=== PATIENT | male | born 1940 | race African-American/Black ===

== ENCOUNTER 2016-10-28 12:50 | Emergency (ER) | payer MEDICARE, OTHER ==
[2016-10-28] MEDS ORDERED: ACETAMINOPHEN 325 MG TABLET PO ONE (13:23)
--- NOTE | 2016-10-28 13:25 | ER Document Report ---
ED Medical Screen (RME) - General Stated Complaint: DIFFICULTY BREATHING Mode of Arrival: Ambulatory Information source: Patient Notes: Patient presents complaining of cough, shortness of breath, wheezing. Patient reports fever of 102.3 at home. Cough has been for the past 3 days. hx: Multiple myeloma with remission, hypertension, renal insufficiency, dyslipidemia I have greeted and performed a rapid initial assessment of this patient. A comprehensive ED assessment and evaluation of the patient, analysis of test results and completion of the medical decision making process will be conducted by additional ED providers. TRAVEL OUTSIDE OF THE [place] IN LAST 30 DAYS: No - Related Data Allergies/Adverse Reactions: Penicillins Allergy (Intermediate, Verified 10/28/16 13:23) swelling Past Medical History - Past Medical History Cardiac Medical History: Reports: Hx Congestive Heart Failure, Hx Hypertension - many years Denies: Hx Coronary Artery Disease, Hx Heart Attack Pulmonary Medical History: Denies: Hx Asthma, Hx Bronchitis, Hx COPD, Hx Pneumonia, Hx Tuberculosis Neurological Medical History: Denies: Hx Cerebrovascular Accident, Hx Seizures Renal/ Medical History: Reports: Hx Benign Prostatic Hyperplasia, Hx End Stage Renal Disease. Denies: Hx Kidney Stones Malignancy Medical History: Reports Hx Leukemia GI Medical History: Reports: Hx Gastroesophageal Reflux Disease. Denies: Hx Cirrhosis, Hx Ulcer Musculoskeltal Medical History: Denies Hx Arthritis, Denies Hx Multiple Sclerosis Psychiatric Medical History: Denies: Hx Bipolar Disorder, Hx Depression, Hx Schizophrenia - Immunizations Immunizations up to date: Yes Hx Diphtheria, Pertussis, Tetanus Vaccination: Yes Physical Exam - Respiratory Respiratory status: No respiratory distress Breath sounds: Nonproductive cough
[2016-10-28 15:04] LABS: ABSOLUTE BASOPHILS # (AUTO) 0.1 10^3/uL (0.0-0.2); ABSOLUTE MONOCYTES (AUTO) 0.4 10^3/uL (0.1-1.4); ABSOLUTE NEUT (AUTO) 6.2 10^3/uL (1.7-8.2); BASOPHILS % (AUTO) 0.7 % (0-2); EOSINOPHILS % (AUTO) 0.4 % (0-6); HEMOGLOBIN 10.6 g/dL (13.5-17.0); HGB HCT DIFFERENCE -1.2; LYMPHOCYTES % (AUTO) 13.5 % (13-45); MEAN CORPUSCULAR HEMOGLOBIN 23.7 pg (27.0-33.4); MEAN CORPUSCULAR VOLUME 74 fl (80-97); MONOCYTES % (AUTO) 5.2 % (3-13); RED BLOOD COUNT 4.46 10^6/uL (4.35-5.55); RED CELL DISTRIBUTION WIDTH 19.6 % (11.5-14.0); SEGMENTED NEUTROPHILS % (AUTO) 80.2 % (42-78); WHITE BLOOD COUNT 7.8 10^3/uL (4.0-10.5)
[2016-10-28] MEDS ORDERED: IPRATROPIUM/ALBUTEROL 0.5-2.5 MG/3 ML AMPUL NEB ONE (15:04)
[2016-10-28 15:27] LABS: ALANINE AMINOTRANSFERASE 23 U/L (21-72); ALBUMIN 4.3 g/dL (3.5-5.0); ALKALINE PHOSPHATASE 65 U/L (38-126); ANION GAP 13 (5-19); ASPARTATE AMINO TRANSFERASE 24 U/L (17-59); BLOOD UREA NITROGEN 69 mg/dL (7-20); CALCIUM 9.6 mg/dL (8.4-10.2); CARBON DIOXIDE 25 mmol/L (22-30); CHLORIDE 100 mmol/L (98-107); CREATINE KINASE 141 U/L (55-170); CREATININE RESULT 4.09 mg/dL (0.52-1.25); GLUCOSE 128 mg/dL (75-110); POTASSIUM 4.4 mmol/L (3.6-5.0); SODIUM 137.6 mmol/L (137-145); TOTAL PROTEIN 7.3 g/dL (6.3-8.2)
[2016-10-28 15:39] LABS: CREATINE KINASE MB 1.38 ng/mL (<4.55); TROPONIN I 0.029 ng/mL
--- NOTE | 2016-10-28 16:12 | ER Document Report ---
ED General - General Chief Complaint: Breathing Difficulty Stated Complaint: DIFFICULTY BREATHING Mode of Arrival: Ambulatory Information source: Patient, Relative Notes: 75 yr old male presents with 2 day duration of nonproductive cough. Pt noted being febrile today. denies any nausea vomiting diarrhea or any other ocncerns TRAVEL OUTSIDE OF THE [place] IN LAST 30 DAYS: No - HPI Onset: Other - 2 days Onset/Duration: Sudden Quality of pain: No pain Severity: Mild Pain Level: Denies Associated symptoms: Nonproductive cough, Fever, Shortness of breath Exacerbated by: Denies Relieved by: Denies Similar symptoms previously: No Recently seen / treated by doctor: No - Related Data Allergies/Adverse Reactions: Penicillins Allergy (Intermediate, Verified 10/28/16 13:23) swelling Past Medical History - General Information source: Patient - Social History Smoking Status: Unknown if Ever Smoked Cigarette use (# per day): No Chew tobacco use (# tins/day): No Smoking Education Provided: No Frequency of alcohol use: None Drug Abuse: None Family History: Reviewed & Not Pertinent, CAD, DM, Hyperlipidemia, Hypertension Patient has suicidal ideation: No Patient has homicidal ideation: No - Past Medical History Cardiac Medical History: Reports: Hx Congestive Heart Failure, Hx Hypertension - many years Denies: Hx Coronary Artery Disease, Hx Heart Attack Pulmonary Medical History: Denies: Hx Asthma, Hx Bronchitis, Hx COPD, Hx Pneumonia, Hx Tuberculosis Neurological Medical History: Denies: Hx Cerebrovascular Accident, Hx Seizures Renal/ Medical History: Reports: Hx Benign Prostatic Hyperplasia, Hx End Stage Renal Disease. Denies: Hx Kidney Stones, Hx Peritoneal Dialysis Malignancy Medical History: Reports Hx Leukemia GI Medical History: Reports: Hx Gastroesophageal Reflux Disease. Denies: Hx Cirrhosis, Hx Ulcer Musculoskeltal Medical History: Denies Hx Arthritis, Denies Hx Multiple Sclerosis Psychiatric Medical History: Denies: Hx Bipolar Disorder, Hx Depression, Hx Schizophrenia - Immunizations Immunizations up to date: Yes Hx Diphtheria, Pertussis, Tetanus Vaccination: Yes Hx Pneumococcal Vaccination: 02/27/15 Review of Systems - Review of Systems Notes: REVIEW OF SYSTEMS: CONSTITUTIONAL :admits ot fver EENT: Denies eye, ear, throat, or mouth pain or symptoms. Denies nasal or sinus congestion or discharge. Denies throat, tongue, or mouth swelling or difficulty swallowing. CARDIOVASCULAR: Denies chest pain. Denies palpitations or racing or irregular heart beat. Denies ankle edema. RESPIRATORY: admits ot sob, cough GASTROINTESTINAL: Denies abdominal pain or distention. Denies nausea, vomiting , or diarrhea. Denies blood in vomitus, stools, or per rectum. Denies black, tarry stools. Denies constipation. GENITOURINARY: Denies difficulty urinating, painful urination, burning, frequency, blood in urine, or discharge. MUSCULOSKELETAL: Denies back or neck pain or stiffness. Denies joint pain or swelling. SKIN: Denies rash, lesions or sores. HEMATOLOGIC : Denies easy bruising or bleeding. LYMPHATIC: Denies swollen, enlarged glands. NEUROLOGICAL: Denies confusion or altered mental status. Denies passing out or loss of consciousness. Denies dizziness or lightheadedness. Denies headache. Denies weakness or paralysis or loss of use of either side. Denies problems with gait or speech. Denies sensory loss, numbness, or tingling. Denies seizures. PSYCHIATRIC: Denies anxiety or stress. Denies depression, suicidal ideation, or homicidal ideation. ALL OTHER SYSTEMS REVIEWED AND NEGATIVE. Dictation was performed using [employer] voice recognition software PHYSICAL EXAMINATION: GENERAL: Well-appearing, well-nourished and in no acute distress. HEAD: Atraumatic, normocephalic. EYES: Pupils equal round and reactive to light, extraocular movements intact, sclera anicteric, conjunctiva are normal. ENT: Nares patent, oropharynx clear without exudates. Moist mucous membranes. NECK: Normal range of motion, supple without lymphadenopathy LUNGS: bilateral expiratory wheezing noted HEART: Regular rate and rhythm without murmurs ABDOMEN: Soft, nontender, nondistended abdomen. No guarding, no rebound. No masses appreciated. Musculoskeletal: Normal range of motion, no pitting or edema. No cyanosis. NEUROLOGICAL: Cranial nerves grossly intact. Normal speech, normal gait. Normal sensory, motor exams PSYCH: Normal mood, normal affect. SKIN: Warm, Dry, normal turgor, no rashes or lesions noted. Physical Exam - Vital signs Vitals: Resp 20 10/28/16 14:45 Course - Re-evaluation Re-evalutation: 10/28/16 16:14 pt to be be given duo nebs, resting at 97% on ra, i expect discharge home, pts fever treated. 02/05/17 16:45 X-ray was negative influenza was normal. Patient sleeping and satting 100%, I will discharge him home with the understanding must return immediately if there is any other concerns, family member agrees with this plan as well After performing a Medical Screening Examination, I estimate there is LOW risk for ACUTE CORONARY SYNDROME, RESPIRATORY FAILURE, SEPSIS OR MENINGITIS, thus I consider the discharge disposition reasonable. The patient and I have discussed the diagnosis and risks, and we agree with discharging home with close follow- up. We also discussed returning to the Emergency Department immediately if new or worsening symptoms occur. We have discussed the symptoms which are most concerning (e.g., changing or worsening pain, trouble swallowing or breathing, neck stiffness, fever) that necessitate immediate return. - Vital Signs Vital signs: Temp Pulse Resp BP Pulse Ox 20 10/28/16 14:45 - Laboratory Result Diagrams: 10/28/16 14:40 10/28/16 14:40 Laboratory results interpreted by me: 10/28/16 10/28/16 14:40 14:40 Hgb 10.6 L Hct 33.0 L MCV 74 L MCH 23.7 L RDW 19.6 H Plt Count 146 L Seg Neutrophils % 80.2 H BUN 69 H Creatinine 4.09 H Est GFR ( Amer) 17 L Est GFR (Non-Af Amer) 14 L Glucose 128 H - Diagnostic Test Radiology reviewed: Image reviewed, Reports reviewed Discharge - Discharge Clinical Impression: Nonproductive cough URI (upper respiratory infection) Qualifiers: URI type: unspecified viral URI Qualified Code(s): J06.9 - Acute upper respiratory infection, unspecified; B97.89 - Other viral agents as the cause of diseases classified elsewhere CKD (chronic kidney disease) Qualifiers: Chronic kidney disease stage: stage 4 (severe) Qualified Code(s): N18.4 - Chronic kidney disease, stage 4 (severe) URI (upper respiratory infection) Qualifiers: URI type: unspecified viral URI Qualified Code(s): J06.9 - Acute upper respiratory infection, unspecified; B97.89 - Other viral agents as the cause of diseases classified elsewhere Fever Qualifiers: Fever type: unspecified Qualified Code(s): R50.9 - Fever, unspecified Condition: Stable Disposition: HOME, SELF-CARE Additional Instructions: Follow up with your physician tomorrow for further care or return to the ED IMMEDIATELY if symptoms worsen or new concerns occur
[2016-10-28] MEDS ORDERED: ALBUTEROL SULFATE HFA (90 MCG/PUFF) 8 GM MDI (1 MDI/ER DISP) IH PRN (16:47)
[2016-10-28 16:49] LABS: VENOUS BLOOD BASE EXCESS 0.6 mmol/L; VENOUS BLOOD HCO3 26.1 mmol/L (20-32); VENOUS BLOOD PCO2 45.3 mmHg (35-63); VENOUS BLOOD PH 7.38 (7.30-7.42)
[2016-10-28 17:37] VITALS: BP 127/59
--- NOTE | 2016-10-28 19:25 | EKG REPORT ---
SEVERITY:- BORDERLINE ECG - SINUS RHYTHM ATRIAL AND VENTRICULAR PREMATURE COMPLEX BORDERLINE INFERIOR Q WAVES : Confirmed by: Al Marcus 28-Oct-2016 19:24:13
== END 2016-10-28 17:37 | disposition home or self-care (01) ==
LOC: ER 12:50
DX: J06.9 Acute upper respiratory infection, unspecified (principal); B97.89 Other viral agents as the cause of diseases classified elsewhere; R05 Cough; N18.4 Chronic kidney disease, stage 4 (severe); R50.9 Fever, unspecified; I50.9 Heart failure, unspecified; I11.0 Hypertensive heart disease with heart failure; Z88.0 Allergy status to penicillin
CPT/HCPCS: 93005; 94640; 99285; 36415; 87040; 82553; 82550; 85025; 80053; 84484; 82803; 83605; 87804; 71020; 93010; A9270 ×2; J3490; J7620

== ENCOUNTER 2016-10-29 14:56 | Inpatient (IN) | payer MEDICARE ==
--- NOTE | 2016-10-29 17:56 | PDOC H&P ---
History of Present Illness Admission Date/PCP: 10/29/16 14:56 Patient complains of: Difficulty with breathing, Fever History of Present Illness: ARIE HUNTER JR is a 75 year old male referred to my service been his PCP for admission due to worsening fever and difficulty with breathing. Patient presented to our ED on 10/28/16 with 2 day duration of nonproductive cough and onset of fever on the day of his presentation. Due to persistence of his symptoms he presented to [facility] earlier today where he was found to have temperature of 101.4F with associated heart rate of 108/min and relative leukocytosis. He received a dose of Ceftriaxone and advised hospitalization for further evaluation and management. Patient had blood culture drawn before antibiotic administration. He reported onset of intermittent productive cough since last evaluation at our ED. He described sputum as yellowish to light brown in color and fair amount in size. He did reported sinus and nasal congestion. He claimed chest pain with coughing. There is associated audible wheezing. He denied any dysuria or hematuria. There is history of CKD stage 4 ad Multiple Myeloma. Past Medical History Cardiac Medical History: Reports: Congestive Heart Failure, Hypertension - many years Denies: Coronary Artery Disease, Myocardial Infarction Pulmonary Medical History: Denies: Asthma, Bronchitis, Chronic Obstructive Pulmonary Disease (COPD), Pneumonia, Tuberculosis Neurological Medical History: Denies: Seizures Renal/ Medical History: Reports: End Stage Renal Disease Malignancy Medical History: Reports: Leukemia GI Medical History: Reports: Gastroesophageal Reflux Disease Denies: Cirrhosis Musculoskeltal Medical History: Denies: Arthritis Psychiatric Medical History: Denies: Bipolar Disorder, Depression Hematology: Reports: Anemia Denies: Bleeding Tendencies Social History Smoking Status: Former Smoker Cigarettes Packs Per Day: 1 Number of Years Smokin Frequency of Alcohol Use: None Hx Recreational Drug Use: No Hx Prescription Drug Abuse: No Family History Family History: Reviewed & Not Pertinent, CAD, DM, Hyperlipidemia, Hypertension Parental Family History Reviewed: Yes Children Family History Reviewed: Yes Sibling(s) Family History Reviewed.: Yes Medication/Allergy Home Medications: Aspirin [Lo-Dose Aspirin EC] 81 mg PO DAILY 10/29/16 Calcium Carb & Citrate/Vit D3 [Calcium + D3 ER Tablet] 1 each PO DAILY 10/29/16 Dexamethasone 20 mg PO MO 10/29/16 Diclofenac Sodium [Voltaren] 2 gm TP QID 10/29/16 Docusate Sodium 100 mg PO TID 10/29/16 Dutasteride [Avodart] 0.5 mg PO DAILY 10/29/16 Ergocalciferol (Vitamin D2) [Vitamin D2] 50,000 unit PO MO 10/29/16 Ferrous Sulfate 325 mg PO DAILY 10/29/16 Fluticasone Propionate [Flovent Diskus] 50 mcg IH DAILY 10/29/16 Furosemide 80 mg PO MOWEFR 10/29/16 Furosemide [Lasix] 40 mg PO SUTUTHSA 10/29/16 Irbesartan [Avapro] 300 mg PO DAILY 10/29/16 Labetalol HCl [Normodyne 200 mg Tablet] 200 mg PO BID 10/29/16 Magnesium Oxide 400 mg PO BID 10/29/16 Metolazone 5 mg PO MOWE10/29/16 Nifedipine [Nifedipine ER] 120 mg PO DAILY 10/29/16 Omeprazole 40 mg PO QAM 10/29/16 Pravastatin Sodium 40 mg PO QHS 10/29/16 Terazosin HCl 2 cap PO DAILY 10/29/16 Vitamin B Complex & Vit C No.4 [Super B Complex] 1 tab PO DAILY 10/29/16 Vitamin E 400 unit PO DAILY 10/29/16 Allergies/Adverse Reactions: Penicillins Allergy (Intermediate, Verified 10/28/16 13:23) swelling Review of Systems Constitutional: PRESENT: chills, fever(s). ABSENT: as per HPI, anorexia, fatigue, headache(s), night sweats, weakness, weight gain, weight loss, other Eyes: ABSENT: visual disturbances Ears: ABSENT: hearing changes Nose, Mouth, and Throat: ABSENT: as per HPI, headache(s), mouth pain, sore throat, vertigo, other Cardiovascular: ABSENT: chest pain, dyspnea on exertion, edema, orthropnea, palpitations Respiratory: PRESENT: cough, dyspnea, sputum Gastrointestinal: ABSENT: abdominal pain, constipation, diarrhea, hematemesis, hematochezia, nausea, vomiting Genitourinary: ABSENT: dysuria, hematuria Musculoskeletal: ABSENT: as per HPI, back pain, deformity, joint swelling, muscle weakness, other Integumentary: ABSENT: as per HPI, diaphoresis, erythema, lesions, pruritus, rash, wounds, other Neurological: PRESENT: weakness - generaliszed due to acute illness. ABSENT: as per HPI, abnormal gait, abnormal movements, abnormal speech, confusion, convulsions, dizziness, focal weakness, frequent falls, lack of coordination, memory loss, numbness, paresthesias, restless legs, syncope, tingling, tremor(s) , vertigo, other Psychiatric: ABSENT: anxiety, depression, homidical ideation, suicidal ideation Endocrine: ABSENT: cold intolerance, heat intolerance, menstrual abnormalities, polydipsia, polyuria Hematologic/Lymphatic: ABSENT: as per HPI, easy bleeding, easy bruising, lymphadenopathy, other Physical Exam Vital Signs: Temp Pulse Resp BP Pulse Ox 99.7 F 67 22 H 149/75 H 97 10/29/16 15:28 10/29/16 15:28 10/29/16 15:28 10/29/16 15:28 10/29/16 15:28 Intake & Output 10/28/16 10/29/16 10/30/16 06:59 06:59 06:59 Weight 96.6 kg Assessment & Plan - Diagnosis (1) Probable sepsis Is this a current diagnosis for this admission?: YesPlan: See admitting physician orders. (2) CKD (chronic kidney disease) Qualifiers: Chronic kidney disease stage: stage 4 (severe) Qualified Code(s): N18.4 - Chronic kidney disease, stage 4 (severe) Is this a current diagnosis for this admission?: YesPlan: Continue current home medication management. (3) Fever Is this a current diagnosis for this admission?: YesPlan: See admitting physician orders. (4) Hypertension Is this a current diagnosis for this admission?: YesPlan: Continue current home medication management. (5) Multiple myeloma without remission Is this a current diagnosis for this admission?: YesPlan: Continue current home medication management. - Time Time Spent: 50 to 70 Minutes Medications reviewed and adjusted accordingly: Yes Anticipated discharge: Home with Homehealth Within: Other - Inpatient Certification Medical Necessity: Need Close Monitoring Due to Risk of Patient Decompensation, Need For IV Fluids, Need For Continuous Telemetry Monitoring, Need for IV Antibiotics
[2016-10-29] MEDS ORDERED: ACETAMINOPHEN 325 MG TABLET PO PRN (18:11)
[2016-10-29] MEDS ORDERED: CLINDAMYCIN 600 MG/D5W RTU 600 MG/50 ML RTUPB IV ONE (19:00)
[2016-10-29 19:41] LABS: PROTHROMBIN TIME 14.9 SEC (11.4-15.4)
[2016-10-29 19:42] LABS: PARTIAL THROMBOPLASTIN TIME 34.7 SEC (23.5-35.8)
[2016-10-29] MEDS: LEVALBUTEROL HCL NEB 0.63 MG/3 ML AMPUL NEB PRN (20:06)
[2016-10-29] MEDS: NORMAL SALINE 1000 ML 1,000 ML IV PRN (20:18)
[2016-10-29] MEDS: DOCUSATE SODIUM 100 MG CAPSULE PO SCH (20:19)
[2016-10-29] MEDS: HEPARIN SOD (PORCINE) 5,000 UNIT/ML 1 ML SYRINGE SUBCUT SCH (21:50)
[2016-10-29] MEDS: ATORVASTATIN CALCIUM 10 MG TABLET PO SCH (21:50)
[2016-10-29] MEDS: LABETALOL HCL 200 MG TABLET PO SCH (21:51)
[2016-10-29] MEDS: MAGNESIUM OXIDE 400 MG TABLET PO SCH (21:52)
[2016-10-29] MEDS ORDERED: ERGOCALCIFEROL (VITAMIN D2) 50000 UNIT (1.25 MG) CAPSULE PO SCH (22:00)
[2016-10-29] MEDS ORDERED: (PENDING PHARMACY ID) (Pravastatin Sodium [Pravastatin Sodium] 40 MG) PO SCH (22:00)
[2016-10-29] MEDS ORDERED: DEXAMETHASONE 4 MG TABLET PO SCH (22:00)
[2016-10-30] MEDS: LEVALBUTEROL HCL NEB 0.63 MG/3 ML AMPUL NEB PRN ×4 (01:20→22:05)
[2016-10-30] MEDS: CLINDAMYCIN 600 MG/D5W RTU 600 MG/50 ML RTUPB IV SCH ×3 (01:46→17:18)
[2016-10-30] MEDS: LANSOPRAZOLE 30 MG TAB.RAP.DR PO SCH (06:05)
[2016-10-30] MEDS: HEPARIN SOD (PORCINE) 5,000 UNIT/ML 1 ML SYRINGE SUBCUT SCH ×3 (06:06→21:54)
[2016-10-30 06:20] LABS: ABSOLUTE LYMPHOCYTES (AUTO) 0.9 10^3/uL (0.5-4.7); ABSOLUTE MONOCYTES (AUTO) 0.1 10^3/uL (0.1-1.4); ABSOLUTE NEUT (AUTO) 4.9 10^3/uL (1.7-8.2); BASOPHILS % (AUTO) 0.8 % (0-2); EOSINOPHILS % (AUTO) 0.1 % (0-6); HEMATOCRIT 30.8 % (37.9-51.0); HEMOGLOBIN 9.7 g/dL (13.5-17.0); HGB HCT DIFFERENCE -1.7; LYMPHOCYTES % (AUTO) 15.4 % (13-45); MEAN CORPUSCULAR HEMOGLOBIN 23.5 pg (27.0-33.4); MEAN CORPUSCULAR HGB CONC 31.4 g/dL (32.0-36.0); MEAN CORPUSCULAR VOLUME 75 fl (80-97); MONOCYTES % (AUTO) 2.2 % (3-13); RED BLOOD COUNT 4.11 10^6/uL (4.35-5.55); RED CELL DISTRIBUTION WIDTH 19.3 % (11.5-14.0); SEGMENTED NEUTROPHILS % (AUTO) 81.5 % (42-78); WHITE BLOOD COUNT 6.1 10^3/uL (4.0-10.5)
[2016-10-30 06:35] LABS: ALANINE AMINOTRANSFERASE 35 U/L (21-72); ALBUMIN 3.3 g/dL (3.5-5.0); ALKALINE PHOSPHATASE 55 U/L (38-126); ANION GAP 16 (5-19); ASPARTATE AMINO TRANSFERASE 60 U/L (17-59); BILIRUBIN,TOTAL 0.4 mg/dL (0.2-1.3); BLOOD UREA NITROGEN 75 mg/dL (7-20); CALCIUM 8.7 mg/dL (8.4-10.2); CARBON DIOXIDE 23 mmol/L (22-30); CHLORIDE 101 mmol/L (98-107); CREATININE RESULT 4.75 mg/dL (0.52-1.25); GLUCOSE 189 mg/dL (75-110); MAGNESIUM 2.1 mg/dL (1.6-2.3); PHOSPHORUS 5.9 mg/dL (2.5-4.5); POTASSIUM 4.5 mmol/L (3.6-5.0); TOTAL PROTEIN 6.4 g/dL (6.3-8.2)
--- NOTE | 2016-10-30 08:04 | EKG REPORT ---
SEVERITY:- ABNORMAL ECG - SINUS RHYTHM SUPRAVENTRICULAR BIGEMINY POOR R WAVE PROGRESSION ANTERIOR PRECORDIAL LEADS. NONSPECIFIC LATERAL ST-T CHANGES : Confirmed by: Tha Chang MD 30-Oct-2016 08:04:08
[2016-10-30] MEDS: LABETALOL HCL 200 MG TABLET PO SCH ×2 (09:55→21:54)
[2016-10-30] MEDS: ASPIRIN 81 MG TABLET, ENT COATED PO SCH (09:56)
[2016-10-30] MEDS: DOCUSATE SODIUM 100 MG CAPSULE PO SCH ×3 (09:56→17:18)
[2016-10-30] MEDS: FERROUS SULFATE 325 MG TABLET PO SCH (09:57)
[2016-10-30] MEDS: CALCIUM CARBONATE 250 MG/VITAMIN D3 125 UNIT TABLET PO SCH (09:57)
[2016-10-30] MEDS: FUROSEMIDE 40 MG TABLET PO SCH (09:58)
[2016-10-30] MEDS: MAGNESIUM OXIDE 400 MG TABLET PO SCH ×2 (09:58→21:54)
[2016-10-30] MEDS: DUTASTERIDE 0.5 MG CAPSULE PO SCH (09:59)
[2016-10-30] MEDS: NIFEDIPINE 30 MG TAB.ER.24 PO SCH (09:59)
[2016-10-30] MEDS ORDERED: DOXAZOSIN MESYLATE 2 MG TABLET PO SCH (10:00)
[2016-10-30] MEDS ORDERED: (PENDING PHARMACY ID) (Ferrous Sulfate [Ferrous Sulfate] 325 MG) PO SCH (10:00)
[2016-10-30] MEDS ORDERED: (PENDING PHARMACY ID) (Nifedipine [Nifedipine Er] 120 MG) PO SCH (10:00)
[2016-10-30] MEDS ORDERED: TERAZOSIN HCL PO SCH (10:00)
[2016-10-30] MEDS ORDERED: (PENDING PHARMACY ID) (Irbesartan [Avapro] 300 MG) PO SCH (10:00)
[2016-10-30] MEDS ORDERED: (PENDING PHARMACY ID) (Calcium Carb & Citrate/Vit D3 [Calcium + D3 Er Tablet] 1 EACH) PO SCH (10:00)
[2016-10-30] MEDS ORDERED: LOSARTAN POTASSIUM 50 MG TABLET PO SCH (10:00)
[2016-10-30] MEDS ORDERED: IRBESARTAN 300 MG PO ONE (15:00)
--- NOTE | 2016-10-30 17:32 | Physician Advisory Note ---
Physician Advisor ProgressNote .: Pursuant to the plan for [facility], I have reviewed the medical record for this patient. Physician Advisor Statement: Nice documentation of CKD stage IV. Possible documentation opportunities if attending agrees: 1. H&P appears to be lacking a physical exam, beyond the VS. Were there any rhonchi, crackles, accessory muscle use, ...? 2. "Possible sepsis, due to , despite neg BCs, with associated fever, tachycardia, relative leukocytosis for his underlying condition, & acute thrombocytopenia" [of course, include pathogen if cx turns +] - Plt count here has usually been WNL. 3. ? - "RLL pneumonia, suspect gram-negative given immunosuppression" [CXR 2/ 5 = possible early or developing RLL pneumonia, ...] 4. "Acute Kidney Injury, likely due to " (due to sepsis?) - baseline Cr appears to be 3.6-4.1, & pt came in w/Cr 4.75 5. "chronic diastolic CHF" As always, if concerned about any unstable VS or abnormal labs, please comment on them & note what doing about them, & please document each day the potential clinical problems you are concerned could occur if pt not kept in hospital for tx at this time. Discussion: 75yo male w/ chronic co-morbidities including multiple myeloma without remission (on chronic dexamethasone), CKD stage IV, HTN, chronic diastolic CHF - presented 2/6 PM from Onc office w/worsening fever & difficulty with breathing, after a visit to ED 2/5 with 2 days of nonproductive cough & fever. He had been having persistence of the sx, with fever/chills, SOB, weakness. In ED 2/5, he was dx'd with URI, given Duonebs. CXR was read as possible early or developing RLL pneumonia, permeative lytic pattern throught the bones consistent with MM, T5 compression deformity, osteopenia. (+) in office had T101.4, HR 108, "relative leukocytosis" for his condition, productive cough that had developed since ED visit with sutum yellowish to light brown, (+)CP with coughing, (+)audible wheezing (without any underlying lung dz). Attending ordered BCJameseplupen @ office, then hospitalization with IV CLinda/ [place], NS @50 (+ usual Lasix/metolazone), prn Xopanex, tele monitoring Status: Elderly pt with underlying chronic immune suppression, developing fever, productive cough, tachycardia, etc as above, with evidence for likely pneumonia along with SHAWN, needing IVF but carefully & w/monitoring given underlying chr diastolic CHF, needs to have close monitoring of response, cx results, be sure he is sufficiently responding to tx before he can be safely d/c'd. This pt with no underlying lung dz or smoking hx had O2 sat as low as 93% last PM. He had persistent tachycardia last PM & still intermittent tachycardia as high as 122 this AM at 03:00. Continues to have frequent ectopy on monitor. Had recurrent tachypnea to 22 this PM. Nurse notes indicate last pm he was unable to lie flat due to breathing difficulty, & both then & this AM he was still SOB w/exertion with I & E wheezes. Tx in inpatient hospital setting medically reasonable & necessary to protect pt' s health, safety, & medical condition. Appropriate for Inpt status. Thanks for your help with documentation accuracy/specificity improvement! Annabella Monroy MD [facility] Physician Advisor, Fellow of Hospital Medicine
--- NOTE | 2016-10-30 17:51 | PDOC PROGRESS REPORT ---
Subjective Progress Note for:: 10/30/16 Subjective:: Patient reported some degree of improvement in his breathing. No recurrent fever since admission. No chest pain. No nausea, vomiting or abdominal pain. No diarrhea. Patient reported satisfactory urine output and was on hemodialysis in the past for only about 6 months. Physical Exam Vital Signs: Temp Pulse Resp BP Pulse Ox 98.1 F 77 16 134/67 H 97 10/30/16 15:04 10/30/16 16:06 10/30/16 16:06 10/30/16 15:04 10/30/16 16:06 Intake & Output 10/29/16 10/30/16 10/31/16 06:59 06:59 06:59 Intake Total 1190 437 Output Total 600 200 Balance 590 237 Weight 96.6 kg General appearance: PRESENT: no acute distress Head exam: PRESENT: atraumatic, normocephalic Eye exam: PRESENT: conjunctiva pink, EOMI, PERRLA. ABSENT: scleral icterus Mouth exam: PRESENT: moist Throat exam: ABSENT: post pharyngeal erythema, tonsillar erythema, tonsillar exudate, tonsillogmegaly, other Neck exam: PRESENT: full ROM. ABSENT: carotid bruit, JVD, lymphadenopathy, thyromegaly Respiratory exam: PRESENT: crackles - right lower lung zone, decreased breath sounds - bibasilar region GI/Abdominal exam: PRESENT: normal bowel sounds, soft. ABSENT: distended, guarding, mass, organolmegaly, rebound, tenderness Extremities exam: PRESENT: full ROM Musculoskeletal exam: PRESENT: deformity - related to joint arthritis involvement Neurological exam: PRESENT: alert, awake, oriented to person, oriented to place , oriented to time, oriented to situation, CN II-XII grossly intact. ABSENT: motor sensory deficit Psychiatric exam: PRESENT: appropriate affect, normal mood. ABSENT: homicidal ideation, suicidal ideation Skin exam: PRESENT: dry, intact, warm. ABSENT: cyanosis, rash Results Laboratory Results: 10/30/16 05:49 10/30/16 05:49 10/30/16 10/30/16 05:49 05:49 WBC 6.1 RBC 4.11 L Hgb 9.7 L Hct 30.8 L MCV 75 L MCH 23.5 L MCHC 31.4 L RDW 19.3 H Plt Count 108 L Seg Neutrophils % 81.5 H Lymphocytes % 15.4 Monocytes % 2.2 L Eosinophils % 0.1 Basophils % 0.8 Absolute Neutrophils 4.9 Absolute Lymphocytes 0.9 Absolute Monocytes 0.1 Absolute Eosinophils 0.0 Absolute Basophils 0.0 Sodium 140.0 Potassium 4.5 Chloride 101 Carbon Dioxide 23 Anion Gap 16 BUN 75 H Creatinine 4.75 H Est GFR ( Amer) 15 L Est GFR (Non-Af Amer) 12 L Glucose 189 H Calcium 8.7 Phosphorus 5.9 H Magnesium 2.1 Total Bilirubin 0.4 AST 60 H ALT 35 Alkaline Phosphatase 55 Total Protein 6.4 Albumin 3.3 L Status: Imported from PACS Assessment & Plan - Diagnosis (1) Probable sepsis Is this a current diagnosis for this admission?: YesPlan: See attending physician orders. (2) CKD (chronic kidney disease) Qualifiers: Chronic kidney disease stage: stage 4 (severe) Qualified Code(s): N18.4 - Chronic kidney disease, stage 4 (severe) Is this a current diagnosis for this admission?: YesPlan: Continue current home medication management. (3) Fever Is this a current diagnosis for this admission?: YesPlan: See attending physician orders. Improved and most likely related to his ongoing pneumonia. (4) Hypertension Is this a current diagnosis for this admission?: YesPlan: Continue current home medication management. (5) Multiple myeloma without remission Is this a current diagnosis for this admission?: Yes (6) Right lower lobe pneumonia Qualifiers: Pneumonia type: due to unspecified organism Qualified Code(s): J18.1 - Lobar pneumonia, unspecified organism Is this a current diagnosis for this admission?: YesPlan: Continue IV Ceftriaxone and Cleocin coverage. - Time Time Spent with patient: 25-34 minutes Medications reviewed and adjusted accordingly: Yes Anticipated discharge: Home with Homehealth - Inpatient Certification Based on my medical assessment, after consideration of the patient's comorbidities, presenting symptoms, or acuity I expect that the services needed warrant INPATIENT care.: Yes I certify that my determination is in accordance with my understanding of Medicare's requirements for reasonable and necessary INPATIENT services [42 CFR 412.3e].: Yes Medical Necessity: Need Close Monitoring Due to Risk of Patient Decompensation, Need For IV Fluids, Need for IV Antibiotics, Risk of Complication if Not Cared For in Hospital Post Hospital Care: D/C Respiratory Care Technician Documentation - Plan Summary Plan Summary: see attending physician orders.
[2016-10-30] MEDS: CEFTRIAXONE 1 GM/D5W RTU 1 GM/50 ML RTUPB IV SCH (21:51)
[2016-10-30] MEDS: ATORVASTATIN CALCIUM 10 MG TABLET PO SCH (21:54)
[2016-10-31] MEDS: NORMAL SALINE 1000 ML 1,000 ML IV PRN (00:35)
[2016-10-31] MEDS: CLINDAMYCIN 600 MG/D5W RTU 600 MG/50 ML RTUPB IV SCH ×3 (02:52→17:42)
[2016-10-31 06:19] LABS: ABSOLUTE MONOCYTES (AUTO) 0.8 10^3/uL (0.1-1.4); ABSOLUTE NEUT (AUTO) 3.8 10^3/uL (1.7-8.2); BASOPHILS % (AUTO) 0.3 % (0-2); HEMATOCRIT 26.9 % (37.9-51.0); HEMOGLOBIN 8.6 g/dL (13.5-17.0); HGB HCT DIFFERENCE -1.1; LYMPHOCYTES % (AUTO) 18.5 % (13-45); MEAN CORPUSCULAR HEMOGLOBIN 23.6 pg (27.0-33.4); MEAN CORPUSCULAR HGB CONC 31.8 g/dL (32.0-36.0); MEAN CORPUSCULAR VOLUME 74 fl (80-97); MONOCYTES % (AUTO) 13.7 % (3-13); RED BLOOD COUNT 3.63 10^6/uL (4.35-5.55); RED CELL DISTRIBUTION WIDTH 19.3 % (11.5-14.0); SEGMENTED NEUTROPHILS % (AUTO) 67.5 % (42-78); WHITE BLOOD COUNT 5.6 10^3/uL (4.0-10.5)
[2016-10-31] MEDS: HEPARIN SOD (PORCINE) 5,000 UNIT/ML 1 ML SYRINGE SUBCUT SCH ×3 (06:19→22:24)
[2016-10-31] MEDS: LANSOPRAZOLE 30 MG TAB.RAP.DR PO SCH (06:19)
[2016-10-31] MEDS: LEVALBUTEROL HCL NEB 0.63 MG/3 ML AMPUL NEB PRN (06:39)
[2016-10-31 07:11] LABS: ANION GAP 15 (5-19); BLOOD UREA NITROGEN 80 mg/dL (7-20); CALCIUM 8.3 mg/dL (8.4-10.2); CARBON DIOXIDE 21 mmol/L (22-30); CHLORIDE 103 mmol/L (98-107); GLUCOSE 144 mg/dL (75-110); SODIUM 138.6 mmol/L (137-145)
[2016-10-31] MEDS: METOLAZONE 5 MG TABLET PO SCH (09:40)
[2016-10-31] MEDS: CALCIUM CARBONATE 250 MG/VITAMIN D3 125 UNIT TABLET PO SCH (09:40)
[2016-10-31] MEDS: ASPIRIN 81 MG TABLET, ENT COATED PO SCH (09:41)
[2016-10-31] MEDS: DOCUSATE SODIUM 100 MG CAPSULE PO SCH ×3 (09:41→17:42)
[2016-10-31] MEDS: LABETALOL HCL 200 MG TABLET PO SCH ×2 (09:41→22:13)
[2016-10-31] MEDS: FERROUS SULFATE 325 MG TABLET PO SCH (09:41)
[2016-10-31] MEDS: FUROSEMIDE 80 MG TABLET PO SCH (09:41)
[2016-10-31] MEDS: MAGNESIUM OXIDE 400 MG TABLET PO SCH ×2 (09:41→22:13)
[2016-10-31] MEDS: NIFEDIPINE 30 MG TAB.ER.24 PO SCH (09:42)
[2016-10-31] MEDS: DOXAZOSIN MESYLATE 2 MG TABLET PO SCH (09:42)
[2016-10-31] MEDS: DUTASTERIDE 0.5 MG CAPSULE PO SCH (09:43)
[2016-10-31] MEDS: IRBESARTAN 300 MG PO SCH (09:45)
--- NOTE | 2016-10-31 12:45 | PDOC PROGRESS REPORT ---
Subjective Progress Note for:: 10/31/16 Subjective:: Patient reported no chest pain and breathing is better. No fever or chills. No nausea, vomiting, abdominal pain, or diarrhea. Tolerating oral feeding. I discussed his worsening renal indices with Dr Maria, compressor service technician, earlier today and he will consult on patient. Physical Exam Vital Signs: Temp Pulse Resp BP Pulse Ox 98.0 F 64 18 105/52 L 96 10/31/16 07:36 10/31/16 07:36 10/31/16 07:36 10/31/16 07:36 10/31/16 07:36 Intake & Output 10/30/16 10/31/16 11/01/16 06:59 06:59 06:59 Intake Total 1190 2906 Output Total 600 925 Balance 590 1981 Weight 96.6 kg 97 kg Physical Exam: General appearance: PRESENT: no acute distress Head exam: PRESENT: atraumatic, normocephalic Eye exam: PRESENT: conjunctiva pink, EOMI, PERRLA. ABSENT: scleral icterus Mouth exam: PRESENT: moist Throat exam: ABSENT: post pharyngeal erythema, tonsillar erythema, tonsillar exudate, tonsillogmegaly, other Neck exam: PRESENT: full ROM. ABSENT: carotid bruit, JVD, lymphadenopathy, thyromegaly Respiratory exam: PRESENT: crackles - right lower lung zone, decreased breath sounds - bibasilar region GI/Abdominal exam: PRESENT: normal bowel sounds, soft. ABSENT: distended, guarding, mass, organolmegaly, rebound, tenderness Extremities exam: PRESENT: full ROM Musculoskeletal exam: PRESENT: deformity - related to joint arthritis involvement Neurological exam: PRESENT: alert, awake, oriented to person, oriented to place , oriented to time, oriented to situation, CN II-XII grossly intact. ABSENT: motor sensory deficit Psychiatric exam: PRESENT: appropriate affect, normal mood. ABSENT: homicidal ideation, suicidal ideation Skin exam: PRESENT: dry, intact, warm. ABSENT: cyanosis, rash Results Laboratory Results: 10/31/16 05:51 10/31/16 05:51 10/31/16 10/31/16 05:51 05:51 WBC 5.6 RBC 3.63 L Hgb 8.6 L Hct 26.9 L MCV 74 L MCH 23.6 L MCHC 31.8 L RDW 19.3 H Plt Count 130 L Seg Neutrophils % 67.5 Lymphocytes % 18.5 Monocytes % 13.7 H Eosinophils % 0.0 Basophils % 0.3 Absolute Neutrophils 3.8 Absolute Lymphocytes 1.0 Absolute Monocytes 0.8 Absolute Eosinophils 0.0 Absolute Basophils 0.0 Sodium 138.6 Potassium 4.0 Chloride 103 Carbon Dioxide 21 L Anion Gap 15 BUN 80 H Creatinine 4.50 H Est GFR ( Amer) 16 L Est GFR (Non-Af Amer) 13 L Glucose 144 H Calcium 8.3 L Assessment & Plan - Diagnosis (1) Probable sepsis Is this a current diagnosis for this admission?: YesPlan: Continue IV Cleocin and Ceftriaxone coverage. See attending physician orders. (2) CKD (chronic kidney disease) Qualifiers: Chronic kidney disease stage: stage 4 (severe) Qualified Code(s): N18.4 - Chronic kidney disease, stage 4 (severe) Is this a current diagnosis for this admission?: YesPlan: Continue current home medication management. Awaiting compressor service technician consultation with recommendations. (3) Fever Is this a current diagnosis for this admission?: Yes (4) Hypertension Is this a current diagnosis for this admission?: Yes (5) Multiple myeloma without remission Is this a current diagnosis for this admission?: YesPlan: Hold Pomalyst as per Dr. Moura recommendation. Continue other current home medication management. (6) Right lower lobe pneumonia Qualifiers: Pneumonia type: due to unspecified organism Qualified Code(s): J18.1 - Lobar pneumonia, unspecified organism Is this a current diagnosis for this admission?: YesPlan: Maintain on IV Ceftriaxone and Cleocin coverage. - Time Time Spent with patient: 25-34 minutes Medications reviewed and adjusted accordingly: Yes Anticipated discharge: Home - Inpatient Certification Medical Necessity: Need Close Monitoring Due to Risk of Patient Decompensation, Need For Continuous Telemetry Monitoring, Need for IV Antibiotics, Risk of Complication if Not Cared For in Hospital Post Hospital Care: D/C Metallography Teacher Documentation - Plan Summary Plan Summary: See attending physician orders.
--- NOTE | 2016-10-31 15:33 | PDOC CONSULTATION ---
Consultation Consult Date: 10/31/16 Consult reason:: Acute on chronic kidney disease. History of Present Illness Admission Date/PCP: 10/29/16 17:57 History of Present Illness: Mr. Avila is a 75 years old -[place]one[place] male who is well known to me with the underlying ckd stage IV with a base creatinine of 3.7 in the background of multiple myeloma hypertension was admitted this last Saturday with history of shortness of breath coughing spells. He's been diagnosed to have chest infection possibly pneumonia and has been begun on antibiotics. He states she's been coughing up white to yellow phlegm with no blood 2-3 days prior to his admission on Saturday he had intermittent fever. He had pleuritic chest pain to coughing. Since admission and begun on antibiotics and fluids today he feels a whole lot better. He denies any history of hematuria. Heme staining makes good urine output. Creatinine peaked at 4.7. Past Medical History Cardiac Medical History: Reports: Hypertension-primary Denies: Coronary Artery Disease, Myocardial Infarction Pulmonary Medical History: Denies: Asthma, Bronchitis, Chronic Obstructive Pulmonary Disease (COPD), Pneumonia, Tuberculosis Neurological Medical History: Denies: Seizures Renal/ Medical History: Reports: Benign Prostatic Hyperplasia, Chronic Kidney Disease Stage IV - He had transient ckd stage V and was on dialysis for a short while before he made good renal recovery and has been off dialysis. Malignancy Medical History: Reports: Other - Multiple myeloma. Sees Dr. Moura GI Medical History: Reports: Gastroesophageal Reflux Disease Denies: Cirrhosis Musculoskeltal Medical History: Denies: Arthritis Psychiatric Medical History: Denies: Bipolar Disorder, Depression Social History Smoking Status: Former Smoker Cigarettes Packs Per Day: 1 Number of Years Smokin Frequency of Alcohol Use: None Hx Recreational Drug Use: No Hx Prescription Drug Abuse: No Family History Parental Family History Reviewed: Yes - ready for ESRD Children Family History Reviewed: No Sibling(s) Family History Reviewed.: No Medication/Allergy Home Medications: Aspirin [Lo-Dose Aspirin EC] 81 mg PO DAILY 10/29/16 Calcium Carb & Citrate/Vit D3 [Calcium + D3 ER Tablet] 1 each PO DAILY 10/29/16 Dexamethasone 20 mg PO MO 10/29/16 Diclofenac Sodium [Voltaren] 2 gm TP QID 10/29/16 Docusate Sodium 100 mg PO TID 10/29/16 Dutasteride [Avodart] 0.5 mg PO DAILY 10/29/16 Ergocalciferol (Vitamin D2) [Vitamin D2] 50,000 unit PO MO 10/29/16 Ferrous Sulfate 325 mg PO DAILY 10/29/16 Fluticasone Propionate [Flovent Diskus] 50 mcg IH DAILY 10/29/16 Furosemide 80 mg PO MOWEFR 10/29/16 Furosemide [Lasix] 40 mg PO SUTUTHSA 10/29/16 Irbesartan [Avapro] 300 mg PO DAILY 10/29/16 Labetalol HCl [Normodyne 200 mg Tablet] 200 mg PO BID 10/29/16 Magnesium Oxide 400 mg PO BID 10/29/16 Metolazone 5 mg PO MOWEFR 10/29/16 Nifedipine [Nifedipine ER] 120 mg PO DAILY 10/29/16 Omeprazole 40 mg PO QAM 10/29/16 Pravastatin Sodium 40 mg PO QHS 10/29/16 Terazosin HCl 2 cap PO DAILY 10/29/16 Vitamin B Complex & Vit C No.4 [Super B Complex] 1 tab PO DAILY 10/29/16 Vitamin E 400 unit PO DAILY 10/29/16 Pomalidomide [Pomalyst] 2 mg PO ASDIR 10/31/16 Allergies/Adverse Reactions: Penicillins Allergy (Intermediate, Verified 10/28/16 13:23) swelling Review of Systems Constitutional: PRESENT: chills, fever(s). ABSENT: headache(s), night sweats, weakness Eyes: ABSENT: visual disturbances Nose, Mouth, and Throat: ABSENT: headache(s), sore throat Cardiovascular: ABSENT: edema, orthropnea, palpitations Respiratory: PRESENT: cough, dyspnea, sputum. ABSENT: hemoptysis Gastrointestinal: ABSENT: abdominal pain, diarrhea, dysphagia, heartburn, hematemesis Genitourinary: ABSENT: dysuria, hematuria Integumentary: ABSENT: diaphoresis, lesions, pruritus Neurological: ABSENT: confusion, focal weakness Physical Exam Vital Signs: Temp Pulse Resp BP Pulse Ox 97.5 F 66 17 112/60 100 10/31/16 11:51 10/31/16 13:29 10/31/16 13:29 10/31/16 11:51 10/31/16 11:51 Intake & Output 10/30/16 10/31/16 11/01/16 06:59 06:59 06:59 Intake Total 1190 2906 Output Total 600 925 Balance 590 1981 Weight 96.6 kg 97 kg General appearance: PRESENT: no acute distress Eye exam: PRESENT: EOMI, nystagmus, PERRLA. ABSENT: conjunctiva pale, periorbital swelling Mouth exam: PRESENT: moist, neck supple Throat exam: ABSENT: tonsillar exudate Neck exam: ABSENT: lymphadenopathy, meningismus, tenderness, thyromegaly, tracheal deviation Respiratory exam: PRESENT: decreased breath sounds, prolonged expiratory phas, rhonchi, symmetrical, tachypnea. ABSENT: chest wall tenderness, clear to auscultation eran, crackles, rales, stridor Cardiovascular exam: PRESENT: +S1, +S2 GI/Abdominal exam: PRESENT: soft. ABSENT: distended, firm, tenderness Extremities exam: ABSENT: pedal edema Neurological exam: PRESENT: alert, awake, oriented to person, oriented to place , oriented to time Skin exam: PRESENT: dry, warm. ABSENT: cyanosis, rash Results Laboratory Results: 10/31/16 05:51 10/31/16 05:51 10/31/16 10/31/16 05:51 05:51 WBC 5.6 RBC 3.63 L Hgb 8.6 L Hct 26.9 L MCV 74 L MCH 23.6 L MCHC 31.8 L RDW 19.3 H Plt Count 130 L Seg Neutrophils % 67.5 Lymphocytes % 18.5 Monocytes % 13.7 H Eosinophils % 0.0 Basophils % 0.3 Absolute Neutrophils 3.8 Absolute Lymphocytes 1.0 Absolute Monocytes 0.8 Absolute Eosinophils 0.0 Absolute Basophils 0.0 Sodium 138.6 Potassium 4.0 Chloride 103 Carbon Dioxide 21 L Anion Gap 15 BUN 80 H Creatinine 4.50 H Est GFR ( Amer) 16 L Est GFR (Non-Af Amer) 13 L Glucose 144 H Calcium 8.3 L Assessment & Plan - Diagnosis (1) Acute exacerbation of chronic obstructive airways disease Plan: As per (2) Acute on chronic kidney disease, stage 4 Plan: Patient has decompensated ckd stage IV. However lites are stable. No indications for renal replacement. Continue to monitor as he recovers hopefully from his ATN/sepsis. (4) Hypertension Is this a current diagnosis for this admission?: YesPlan: Monitor . clinically stable. (5) Multiple myeloma Plan: As per heme oncologist. (6) Anemia Plan: Multifactorial. This includes chronic kidney disease and multiple myeloma. Since Dr. Moura still is involved I'm going to leave it to her to manage this
[2016-10-31] MEDS: ATORVASTATIN CALCIUM 10 MG TABLET PO SCH (22:13)
[2016-10-31] MEDS: CEFTRIAXONE 1 GM/D5W RTU 1 GM/50 ML RTUPB IV SCH (22:17)
[2016-11-01] MEDS: CLINDAMYCIN 600 MG/D5W RTU 600 MG/50 ML RTUPB IV SCH ×3 (01:43→17:09)
[2016-11-01] MEDS: NORMAL SALINE 1000 ML 1,000 ML IV PRN (01:43)
[2016-11-01] MEDS: LANSOPRAZOLE 30 MG TAB.RAP.DR PO SCH (05:44)
[2016-11-01] MEDS: HEPARIN SOD (PORCINE) 5,000 UNIT/ML 1 ML SYRINGE SUBCUT SCH ×3 (05:54→21:53)
[2016-11-01] MEDS: LABETALOL HCL 200 MG TABLET PO SCH ×2 (09:33→21:57)
[2016-11-01] MEDS: DOCUSATE SODIUM 100 MG CAPSULE PO SCH ×3 (09:33→17:10)
[2016-11-01] MEDS: CALCIUM CARBONATE 250 MG/VITAMIN D3 125 UNIT TABLET PO SCH (09:33)
[2016-11-01] MEDS: MAGNESIUM OXIDE 400 MG TABLET PO SCH ×2 (09:34→21:46)
[2016-11-01] MEDS: ASPIRIN 81 MG TABLET, ENT COATED PO SCH (09:34)
[2016-11-01] MEDS: DOXAZOSIN MESYLATE 2 MG TABLET PO SCH (09:34)
[2016-11-01] MEDS: FERROUS SULFATE 325 MG TABLET PO SCH (09:34)
[2016-11-01] MEDS: NIFEDIPINE 30 MG TAB.ER.24 PO SCH (09:35)
[2016-11-01] MEDS: DUTASTERIDE 0.5 MG CAPSULE PO SCH (09:36)
[2016-11-01] MEDS: FUROSEMIDE 40 MG TABLET PO SCH (09:37)
[2016-11-01] MEDS: IRBESARTAN 300 MG PO SCH (09:44)
--- NOTE | 2016-11-01 13:15 | PDOC PROGRESS REPORT ---
Subjective Progress Note for:: 11/01/16 Subjective:: No fever or chills. Patient reported improved breathing. No chest pain. No nausea, vomiting, abdominal pain. Patient reported some degree of diarrhea. Tolerating oral feeding. Physical Exam Vital Signs: Temp Pulse Resp BP Pulse Ox 97.8 F 66 17 111/62 99 11/01/16 11:33 11/01/16 11:48 11/01/16 11:48 11/01/16 11:33 11/01/16 11:33 Intake & Output 10/31/16 11/01/16 11/02/16 06:59 06:59 06:59 Intake Total 2906 2876 Output Total 925 2500 Balance 1981 376 Weight 97 kg 96 kg Physical Exam: General appearance: PRESENT: no acute distress Head exam: PRESENT: atraumatic, normocephalic Eye exam: PRESENT: conjunctiva pink, EOMI, PERRLA. ABSENT: scleral icterus Mouth exam: PRESENT: moist Throat exam: ABSENT: post pharyngeal erythema, tonsillar erythema, tonsillar exudate, tonsillogmegaly, other Neck exam: PRESENT: full ROM. ABSENT: carotid bruit, JVD, lymphadenopathy, thyromegaly Respiratory exam: PRESENT: crackles - right lower lung zone, decreased breath sounds - bibasilar region GI/Abdominal exam: PRESENT: normal bowel sounds, soft. ABSENT: distended, guarding, mass, organolmegaly, rebound, tenderness Extremities exam: PRESENT: full ROM Musculoskeletal exam: PRESENT: deformity - related to joint arthritis involvement Neurological exam: PRESENT: alert, awake, oriented to person, oriented to place , oriented to time, oriented to situation, CN II-XII grossly intact. ABSENT: motor sensory deficit Psychiatric exam: PRESENT: appropriate affect, normal mood. ABSENT: homicidal ideation, suicidal ideation Skin exam: PRESENT: dry, intact, warm. ABSENT: cyanosis, rash Results Laboratory Results: 10/31/16 05:51 10/31/16 05:51 Assessment & Plan - Diagnosis (1) Probable sepsis Is this a current diagnosis for this admission?: YesPlan: Continue IV Cleocin and Ceftriaxone coverage. See attending physician orders. (2) CKD (chronic kidney disease) Qualifiers: Chronic kidney disease stage: stage 4 (severe) Qualified Code(s): N18.4 - Chronic kidney disease, stage 4 (severe) Is this a current diagnosis for this admission?: YesPlan: Continue current home medication management. Well Logger consultation recommendations noted. (3) Fever Is this a current diagnosis for this admission?: Yes (4) Hypertension Is this a current diagnosis for this admission?: YesPlan: Continue current medication management. (5) Multiple myeloma without remission Is this a current diagnosis for this admission?: Yes (6) Right lower lobe pneumonia Qualifiers: Pneumonia type: due to unspecified organism Qualified Code(s): J18.1 - Lobar pneumonia, unspecified organism Is this a current diagnosis for this admission?: Yes - Time Time Spent with patient: 25-34 minutes Medications reviewed and adjusted accordingly: Yes Within: within 48 hours - Inpatient Certification Medical Necessity: Need Close Monitoring Due to Risk of Patient Decompensation, Need For IV Fluids, Need for IV Antibiotics, Risk of Complication if Not Cared For in Hospital Post Hospital Care: D/C Creative Lead Documentation - Plan Summary Plan Summary: See attending physician orders.
[2016-11-01] MEDS: LEVALBUTEROL HCL NEB 0.63 MG/3 ML AMPUL NEB PRN (21:02)
[2016-11-01] MEDS: ATORVASTATIN CALCIUM 10 MG TABLET PO SCH (21:46)
[2016-11-01] MEDS: CEFTRIAXONE 1 GM/D5W RTU 1 GM/50 ML RTUPB IV SCH (21:48)
[2016-11-02] MEDS: CLINDAMYCIN 600 MG/D5W RTU 600 MG/50 ML RTUPB IV SCH (01:47)
[2016-11-02] MEDS: NORMAL SALINE 1000 ML 1,000 ML IV PRN (01:50)
[2016-11-02 05:57] LABS: HEMATOCRIT 28.1 % (37.9-51.0); HGB HCT DIFFERENCE -1.1; MEAN CORPUSCULAR HEMOGLOBIN 23.6 pg (27.0-33.4); MEAN CORPUSCULAR HGB CONC 31.9 g/dL (32.0-36.0); MEAN CORPUSCULAR VOLUME 74 fl (80-97); RED CELL DISTRIBUTION WIDTH 19.1 % (11.5-14.0); WHITE BLOOD COUNT 4.6 10^3/uL (4.0-10.5)
[2016-11-02] MEDS: LANSOPRAZOLE 30 MG TAB.RAP.DR PO SCH (06:25)
[2016-11-02] MEDS: HEPARIN SOD (PORCINE) 5,000 UNIT/ML 1 ML SYRINGE SUBCUT SCH (06:25)
[2016-11-02 06:30] LABS: ANION GAP 10 (5-19); BLOOD UREA NITROGEN 71 mg/dL (7-20); CALCIUM 8.6 mg/dL (8.4-10.2); CARBON DIOXIDE 24 mmol/L (22-30); CHLORIDE 102 mmol/L (98-107); CREATININE RESULT 3.78 mg/dL (0.52-1.25); GLUCOSE 115 mg/dL (75-110); POTASSIUM 3.9 mmol/L (3.6-5.0); SODIUM 136.1 mmol/L (137-145)
--- NOTE | 2016-11-02 08:56 | PDOC DISCHARGE SUMMARY ---
General - Admit/Disc Date/PCP Admission Date/Primary Care Provider: 10/29/16 17:57 Discharge Date: 11/02/16 - Discharge Diagnosis (1) Probable sepsis Is this a current diagnosis for this admission?: Yes (2) CKD (chronic kidney disease) Is this a current diagnosis for this admission?: Yes (3) Fever Is this a current diagnosis for this admission?: Yes (4) Hypertension Is this a current diagnosis for this admission?: Yes (5) Multiple myeloma without remission Is this a current diagnosis for this admission?: Yes (6) Right lower lobe pneumonia Is this a current diagnosis for this admission?: Yes - Additional Information Home Medications: Aspirin [Lo-Dose Aspirin EC] 81 mg PO DAILY 10/29/16 Calcium Carb & Citrate/Vit D3 [Calcium + D3 ER Tablet] 1 each PO DAILY 10/29/16 Dexamethasone 20 mg PO MO 10/29/16 Diclofenac Sodium [Voltaren] 2 gm TP QID 10/29/16 Docusate Sodium 100 mg PO TID 10/29/16 Dutasteride [Avodart] 0.5 mg PO DAILY 10/29/16 Ergocalciferol (Vitamin D2) [Vitamin D2] 50,000 unit PO MO 10/29/16 Ferrous Sulfate 325 mg PO DAILY 10/29/16 Fluticasone Propionate [Flovent Diskus] 50 mcg IH DAILY 10/29/16 Furosemide 80 mg PO MOWEFR 10/29/16 Furosemide [Lasix] 40 mg PO SUTUTHSA 10/29/16 Irbesartan [Avapro] 300 mg PO DAILY 10/29/16 Labetalol HCl [Normodyne 200 mg Tablet] 200 mg PO BID 10/29/16 Magnesium Oxide 400 mg PO BID 10/29/16 Metolazone 5 mg PO MOWEFR 10/29/16 Nifedipine [Nifedipine ER] 120 mg PO DAILY 10/29/16 Omeprazole 40 mg PO QAM 10/29/16 Pravastatin Sodium 40 mg PO QHS 10/29/16 Terazosin HCl 2 cap PO DAILY 10/29/16 Vitamin B Complex & Vit C No.4 [Super B Complex] 1 tab PO DAILY 10/29/16 Vitamin E 400 unit PO DAILY 10/29/16 Pomalidomide [Pomalyst] 2 mg PO ASDIR 10/31/16 History of Present Illness Patient complains of: Fever and difficulty with breathing History of Present Illness: ARIE HUNTER JR is a 75 year old male referred to my service been his PCP for admission due to worsening fever and difficulty with breathing. Patient presented to our ED on 10/28/16 with 2 day duration of nonproductive cough and onset of fever on the day of his presentation. Due to persistence of his symptoms he presented to [facility] earlier today where he was found to have temperature of 101.4F with associated heart rate of 108/min and relative leukocytosis. He received a dose of Ceftriaxone and advised hospitalization for further evaluation and management. Patient had blood culture drawn before antibiotic administration. He reported onset of intermittent productive cough since last evaluation at our ED. He described sputum as yellowish to light brown in color and fair amount in size. He did reported sinus and nasal congestion. He claimed chest pain with coughing. There is associated audible wheezing. He denied any dysuria or hematuria. There is history of CKD stage 4 ad Multiple Myeloma. Hospital Course Hospital Course: Patient did respond to IV Rocephin and Cleocin coverage with presumptive concern for pneumonia due to his presenting symptoms. His blood culture completed as out patient on 10/28/16 has been no growth x 5 days. His elevated temperature and difficulty with breathing did improved. Patient will be discharged home today with understanding to follow up with Dr Moura, his medical oncologist, for need of further IV antibiotic therapy with Rocephin. He denied any fever or chills. No nausea or vomiting. No abdominal pain and his diarrhea has improved. Patient is agreeable to discharge home today. Patient will follow up in the office as instructed upon discharge. Physical Exam Vital Signs: Temp Pulse Resp BP Pulse Ox 97.8 F 69 20 122/57 L 100 11/02/16 07:21 11/02/16 07:21 11/02/16 07:21 11/02/16 07:21 11/02/16 07:21 Intake & Output 11/01/16 11/02/16 11/03/16 06:59 06:59 06:59 Intake Total 2876 2337 Output Total 4843 1565 Balance 376 772 Weight 96 kg 95 kg Physical Exam: General appearance: PRESENT: no acute distress Head exam: PRESENT: atraumatic, normocephalic Eye exam: PRESENT: conjunctiva pink, EOMI, PERRLA. ABSENT: scleral icterus Mouth exam: PRESENT: moist Throat exam: ABSENT: post pharyngeal erythema, tonsillar erythema, tonsillar exudate, tonsillogmegaly, other Neck exam: PRESENT: full ROM. ABSENT: carotid bruit, JVD, lymphadenopathy, thyromegaly Respiratory exam: PRESENT: crackles - right lower lung zone, decreased breath sounds - bibasilar region GI/Abdominal exam: PRESENT: normal bowel sounds, soft. ABSENT: distended, guarding, mass, organolmegaly, rebound, tenderness Extremities exam: PRESENT: full ROM Musculoskeletal exam: PRESENT: deformity - related to joint arthritis involvement Neurological exam: PRESENT: alert, awake, oriented to person, oriented to place , oriented to time, oriented to situation, CN II-XII grossly intact. ABSENT: motor sensory deficit Psychiatric exam: PRESENT: appropriate affect, normal mood. ABSENT: homicidal ideation, suicidal ideation Skin exam: PRESENT: dry, intact, warm. ABSENT: cyanosis, rash Results Laboratory Results: 11/02/16 05:01 11/02/16 05:01 11/02/16 11/02/16 05:01 05:01 WBC 4.6 RBC 3.80 L Hgb 9.0 L Hct 28.1 L MCV 74 L MCH 23.6 L MCHC 31.9 L RDW 19.1 H Plt Count 128 L Sodium 136.1 L Potassium 3.9 Chloride 102 Carbon Dioxide 24 Anion Gap 10 BUN 71 H Creatinine 3.78 H Est GFR ( Amer) 19 L Est GFR (Non-Af Amer) 16 L Glucose 115 H Calcium 8.6 Qualifiers [facility] BEING DISCHARGED WITH ANY OF THE FOLLOWING DIAGNOSIS?: No Plan Discharge Plan: D/C home today. Follow up at the office as earlier discussed. Time Spent: Less than 30 Minutes
[2016-11-02] MEDS: IRBESARTAN 300 MG PO SCH (09:59)
[2016-11-02] MEDS: DOXAZOSIN MESYLATE 2 MG TABLET PO SCH (10:00)
[2016-11-02] MEDS: FUROSEMIDE 80 MG TABLET PO SCH (10:00)
[2016-11-02] MEDS: NIFEDIPINE 30 MG TAB.ER.24 PO SCH (10:00)
[2016-11-02] MEDS: LABETALOL HCL 200 MG TABLET PO SCH (10:00)
[2016-11-02] MEDS: CALCIUM CARBONATE 250 MG/VITAMIN D3 125 UNIT TABLET PO SCH (10:00)
[2016-11-02] MEDS: ASPIRIN 81 MG TABLET, ENT COATED PO SCH (10:00)
[2016-11-02] MEDS: DUTASTERIDE 0.5 MG CAPSULE PO SCH (10:00)
[2016-11-02] MEDS: FERROUS SULFATE 325 MG TABLET PO SCH (10:01)
[2016-11-02] MEDS: DOCUSATE SODIUM 100 MG CAPSULE PO SCH (10:01)
[2016-11-02] MEDS: MAGNESIUM OXIDE 400 MG TABLET PO SCH (10:01)
[2016-11-02] MEDS: METOLAZONE 5 MG TABLET PO SCH (10:01)
[2016-11-02 10:19] VITALS: BP 149/75
== END 2016-11-02 11:00 | disposition home or self-care (01) | DRG 871 ==
LOC: 3S 14:56 → UNDOADMIN 14:56 → 3S 17:57
PROVIDERS: ADMIT Internal Medicine Geriatric Medicine; ATTEND Internal Medicine Geriatric Medicine
DX: A41.9 Sepsis, unspecified organism (principal); J18.1 Lobar pneumonia, unspecified organism; N17.0 Acute kidney failure with tubular necrosis; I13.0 Hypertensive heart and chronic kidney disease with heart failure and stage 1 through stage 4 chronic kidney disease, or unspecified chronic kidney disease; N18.4 Chronic kidney disease, stage 4 (severe); C90.00 Multiple myeloma not having achieved remission; D63.1 Anemia in chronic kidney disease; I50.9 Heart failure, unspecified; K21.9 Gastro-esophageal reflux disease without esophagitis; Z87.891 Personal history of nicotine dependence; Z82.49 Family history of ischemic heart disease and other diseases of the circulatory system; Z82.3 Family history of stroke; Z79.82 Long term (current) use of aspirin; Z79.899 Other long term (current) drug therapy; Z88.0 Allergy status to penicillin
CPT/HCPCS: 36415; 71020; 80048; 80053; 82550; 82553; 82803; 83605; 83735; 84100; 84484; 85025; 85027; 85610; 85730; 87040; 87804; 93005; 93010; 94640; 99285; J0696; J1642; J1644; J3490; J7030; J7614; J7620

== ENCOUNTER → 2017-03-13 | Outpatient (CLI) | payer MEDICARE ==
[2017-03-13 19:34] LABS: FLUID APPEARANCE TURBID; FLUID RBC SIDE 1 120; FLUID TYPE SYNOVIAL
[2017-03-13 19:35] LABS: FLUID RBC AVERAGE 124.5; FLUID RBC DILUENT USED SALINE; FLUID RBC DILUTION FACTOR 5; FLUID RBC SIDE 2 129; TOTAL RBC SQUARES COUNTED FLD 100
== END ==
LOC: OD 16:34
PROVIDERS: ATTEND Orthopaedic Surgery
DX: M25.461 Effusion, right knee (principal)
CPT/HCPCS: 87070; 87075; 87205; 89050

== ENCOUNTER → 2017-04-16 | Outpatient (CLI) | payer MEDICARE ==
[2017-04-16 09:11] LABS: CHOLESTEROL 184.44 mg/dL (0-200); Direct HDL 47 mg/dL (>40); TRIGLYCERIDES 194 mg/dL (<150)
[2017-04-16 09:23] LABS: DIRECT LDL 57 mg/dL (<100)
[2017-04-16 09:24] LABS: VLDL CHOLESTEROL 38.8 mg/dL (10-31)
== END ==
LOC: OD 07:08
PROVIDERS: ATTEND Internal Medicine Geriatric Medicine
DX: E78.5 Hyperlipidemia, unspecified (principal); E55.9 Vitamin D deficiency, unspecified
CPT/HCPCS: 36415; 80061; 82306

== ENCOUNTER → 2017-08-23 | Outpatient (CLI) | payer MEDICARE | LOC: OD 09:16 | PROVIDERS: ATTEND Internal Medicine Nephrology | DX: E83.42 Hypomagnesemia (principal) | CPT/HCPCS: 36415; 83735 ==

== ENCOUNTER → 2017-10-01 | Outpatient (CLI) | payer MEDICARE ==
[2017-10-01 10:50] LABS: ANION GAP 17 (5-19); BLOOD UREA NITROGEN 67 mg/dL (7-20); CALCIUM 10.5 mg/dL (8.4-10.2); CARBON DIOXIDE 22 mmol/L (22-30); CHLORIDE 98 mmol/L (98-107); GLUCOSE 171 mg/dL (75-110); SODIUM 137.4 mmol/L (137-145)
== END ==
LOC: OD 08:45
PROVIDERS: ATTEND Internal Medicine Nephrology
DX: N18.4 Chronic kidney disease, stage 4 (severe) (principal); D64.9 Anemia, unspecified; R80.9 Proteinuria, unspecified; E83.42 Hypomagnesemia
CPT/HCPCS: 36415; 80048

== ENCOUNTER → 2017-10-03 | Outpatient (CLI) | payer MEDICARE | LOC: OD 09:42 | PROVIDERS: ATTEND Internal Medicine Geriatric Medicine | DX: M1A.00X0 Idiopathic chronic gout, unspecified site, without tophus (tophi) (principal) | CPT/HCPCS: 36415; 84550 ==

== ENCOUNTER 2017-11-30 11:42 | Emergency (ER) | payer MEDICARE ==
--- NOTE | 2017-11-30 12:04 | ER Document Report ---
ED Neuro Symptoms/Deficit - General Chief Complaint: S/S of Possible Stroke Stated Complaint: STROKE SYPTOMS Time Seen by Provider: 11/30/17 11:59 Mode of Arrival: Medic Information source: Patient, Relative Cannot obtain history due to: Altered mental status Notes: 77-year-old male with a history of multiple myeloma and hypertension presents via private vehicle with his and son who are concerned for a change in his mental status.Per the patient's patient has been sleeping excessively over the last 3 days. She states this morning he awoke with slurred speech.At baseline patient is independent, able to perform all duties of living. He ambulates independently. She denies any previous history of CVA or PA. She does state that the patient has had a cough for 1 week and was seen by his primary care physician who placed him on an antibiotic. denies any recent falls, changes in medication. TRAVEL OUTSIDE OF THE [place] IN LAST 30 DAYS: No - HPI Patient complains to provider of: Difficulty walking, Speech Impairment, Weakness Onset: Other - Unknown Awoke with symptoms: Yes Exact time of onset: Unclear - Related Data Allergies/Adverse Reactions: Penicillins Allergy (Intermediate, Verified 11/30/17 11:43) swelling Past Medical History - Social History Smoking Status: Never Smoker Frequency of alcohol use: None Drug Abuse: None Lives with: Family Family History: Reviewed & Not Pertinent, CAD, DM, Hyperlipidemia, Hypertension - Past Medical History Cardiac Medical History: Reports: Hx Congestive Heart Failure, Hx Hypertension - many years Denies: Hx Coronary Artery Disease, Hx Heart Attack Pulmonary Medical History: Denies: Hx Asthma, Hx Bronchitis, Hx COPD, Hx Pneumonia, Hx Tuberculosis Neurological Medical History: Denies: Hx Cerebrovascular Accident, Hx Seizures Renal/ Medical History: Reports: Hx Benign Prostatic Hyperplasia, Hx End Stage Renal Disease. Denies: Hx Kidney Stones, Hx Peritoneal Dialysis Malignancy Medical History: Reports Hx Leukemia, Reports Other - Multiple myeloma GI Medical History: Reports: Hx Gastroesophageal Reflux Disease. Denies: Hx Cirrhosis, Hx Ulcer Musculoskeltal Medical History: Denies Hx Arthritis, Denies Hx Multiple Sclerosis Psychiatric Medical History: Denies: Hx Bipolar Disorder, Hx Depression, Hx Schizophrenia - Immunizations Immunizations up to date: Yes Hx Diphtheria, Pertussis, Tetanus Vaccination: Yes Hx Pneumococcal Vaccination: 02/27/15 Review of Systems - Review of Systems -: Yes ROS unobtainable due to patient's medical condition Physical Exam - Vital signs Vitals: Temp Pulse Resp BP Pulse Ox 97.5 F 57 L 16 111/54 L 94 11/30/17 11:49 11/30/17 11:49 11/30/17 11:49 11/30/17 11:49 11/30/17 11:49 - General General appearance: Lethargic In distress: None - HEENT Head: Normocephalic, Atraumatic Eyes: Normal Conjunctiva: Icteric Extraocular movements intact: Yes Pupils: PERRL Mucous membranes: Dry - Respiratory Respiratory status: No respiratory distress Chest status: Nontender Breath sounds: Normal Chest palpation: Normal - Cardiovascular Rhythm: Regular, Bradycardia Heart sounds: Normal auscultation Murmur: No Normal capillary refill: Yes - Abdominal Inspection: Normal Distension: No distension Bowel sounds: Normal Tenderness: Nontender Organomegaly: No organomegaly - Back Back: Normal, Nontender - Extremities General upper extremity: Normal inspection, Nontender, Normal color, Normal ROM , Normal temperature. No: Edema General lower extremity: Normal inspection, Nontender, Normal color, Normal ROM , Normal temperature, Normal weight bearing. No: Edema, Gilles's sign - Neurological Neuro grossly intact: No Cognition: Confused Orientation: AAOx4 Willem Coma Scale Eye Opening: Spontaneous Willem Coma Scale Verbal: Oriented Willem Coma Scale Motor: Obeys Commands Pelion Coma Scale Total: 15 Speech: Dysarthria Cranial nerves: Normal Cerebellar coordination: Heel-walters Motor strength normal: LUE, RUE, LLE, RLE Sensory: Normal Course - Re-evaluation Re-evalutation: 11/30/17 12:24 NIH performed and 8. Last known well was two days prior to arrival. 11/30/17 13:04 Patient's heart rate found to be 40. Pacer pads placed. Atropine administered. 11/30/17 14:14 Critical values of a potassium of 6.6 and a glucose greater than 1200 was found. Calcium gluconate, sodium bicarb, and insulin were ordered. 11/30/17 15:13 Patient's heart rate improved after administration of calcium and sodium bicarb.Patient having dystonic reaction to Reglan for which Benadryl was administered. cogentin administered after no improvement with benadryl. 11/30/17 15:24 Hospitalist called. 11/30/17 15:27 Hospitalist declining admission will attempt transfer. 11/30/17 16:33 Patient accepted to [facility] by Dr.Kevin Raymond 11/30/17 17:07 77-year-old male presents from home with altered mental status. Upon arrival vitals were reviewed. Patient is bradycardic, normotensive and not hypoxic. NIH was performed immediately upon arrival with a score of 8. This was for dysarthria and ataxia. Patient appears toxic, and dehydrated. Significant findings include a glucose of 1300, a potassium of 6.6 and renal failure with a BUN of 96 and a creatinine of 4.77.Patient was given IV fluids, sodium bicarb, calcium gluconate, atropine. Patient did have improvement of heart rate and has current vitals of heart rate of 73, blood pressure 110/75 and a SPO2 of 100. Patient will be transferred via [facility] to [facility]. 11/30/17 17:09 11/30/17 17:19 - Vital Signs Vital signs: Temp Pulse Resp BP Pulse Ox 97.5 F 57 L 16 111/54 L 94 11/30/17 11:49 11/30/17 11:49 11/30/17 11:49 11/30/17 11:49 11/30/17 11:49 - Laboratory Result Diagrams: 11/30/17 12:40 11/30/17 12:40 Critical Care Note - Critical Care Note Total time excluding time spent on procedures (mins): 40 - 45 minutes of critical care time was spent with this patient, family. I discussed patient with consultants. Patient required mutliple re-evaluations. Labs and x-rays were reviewed. ED NIH Stroke Scale - NIH Stroke Scale When completed:: Protocol *: 1. NIH scale should be completed with appropriate accompanying assessment tools. *: 2. The NIH should reflect what the patient is capable of doing and should not be coached by the clinician. 1a. Level of Consciousness: 0=Alert;keenly responsive -: 1=Drowsy -: 2=Obtunded -: 3=Coma/unresponsive or reflex to noxious stimuli. 1a. Responses: 1 1b. Orientation Questions: a. What month is it? -: b. How old are you? -: 0=Answers both questions correctly. -: 1=Answers one question correctly or patient is intubated or has orotracheal trauma. -: 2=Answers neither question correctly. 1b. Responses: 0 1c. Response to commands: a. Open and close eyes? -: b. Vp Hr Diversity and release hand? -: Credit is given despite weakness. Demonstration of task is permitted. Substitute command if hands cannot be used. -: 0=Performs both tasks correctly -: 1=Performs one task correctly -: 2=Performs neither task correctly 1c. Responses: 0 2. Gaze: Establish eye contact and instruct patient to "Follow my finger" -: 0=Normal -: 1=Partial gaze palsy. Gaze is abnormal in one or both eyes, but where forced deviation or total gaze paresis is not present. -: 2=Forced deviation or total gaze paresis. 2. Responses: 0 3. Visual Tavares: Sees fingers in all four quadrants. -: 0=No visual loss. -: 1=Partial hemianopsia. -: 2=Complete hemianopsia. -: 3=Bilateral hemianopsia (including Cortical blindness) 3. Responses: 0 4. Facial Movement: Instruct patient to: -: a. Show me your teeth -: b. Raise your eyebrows -: c. Close your eyes -: d. Smile -: 0=Normal symmetrical movement -: 1=Minor paralysis (flattened nasolabial fold, asymmetry on smiling). -: 2=Partial paralysis (total or near total paralysis of lower face). -: 3=Complete paralysis of upper and lower face 4. Responses: 0 5. Motor functions (left arm): Alternate sides and extend each arm with palms down (90 degrees if sitting or 45 degrees for supine). -: 0=No drift;limb holds for full 10 seconds. -: 1=Drift; limb holds but drifts down before full 10 seconds, but does not hit bed. -: 2=Some effort against gravity; limb cannot get to or maintain position. -: 3=No effort against gravity; limb falls. -: 4=No movement. -: UN=Amputation, joint fusion, explain in comments. 5. Responses (left arm): 1 5. Motor Functions (right arm): Alternate sides and extend each arm with palms down (90 degrees if sitting or 45 degrees for supine). -: 0=No drift;limb holds for full 10 seconds. -: 1=Drift; limb holds but drifts down before full 10 seconds, but does not hit bed. -: 2=Some effort against gravity; limb cannot get to or maintain position. -: 3=No effort against gravity; limb falls. -: 4=No movement. -: UN=Amputation, joint fusion, explain in comments. 5. Responses (right arm): 1 6. Motor Functions (left leg): With patient lying supine, alternate sides and extend each leg (30 degrees always while supine). -: 0=No drift, leg holds position for full 5 seconds -: 1=Drift; leg falls before full 5 seconds but does not hit bed. -: 2=Some effort against gravity, leg falls to bed but some effort against gravity. -: 3=No effort against gravity, leg falls to bed immediately. -: 4=No movement. -: UN=Amputation, joint fusion; explain in comments. 6. Responses (left leg): 2 6. Motor Functions (right leg): With patient lying supine, alternate sides and extend each leg (30 degrees always while supine). -: 0=No drift, leg holds position for full 5 seconds -: 1=Drift; leg falls before full 5 seconds but does not hit bed. -: 2=Some effort against gravity, leg falls to bed but some effort against gravity. -: 3=No effort against gravity, leg falls to bed immediately. -: 4=No movement. -: UN=Amputation, joint fusion; explain in comments. 6. Responses (right leg): 1 7. Limb Ataxia: With eyes open instruct patient to: -: a. "Touch your finger to your nose". -: b. "Touch your heel to your walters" -: 0=Absent -: 1=Present in one limb. -: 2=Present in two limbs. -: UN=Amputation or joint fusion; explain in comments. 7. Responses: 2 7. If ataxia present choose as appropriate: Left leg, Right leg 8. Sensory: Test sensation using pinprick or noxious stimuli. Test as many body parts as possible. -: 0=Normal;no sensory loss -: 1=Mile to moderate sensory loss (patient feels pin prick but is less sharp on affected side). -: 2=Severe or total sensory loss. 8. Responses: 0 9. Best Language: Instruct patient to: -: a. "Describe what you see in this picture." -: b. "Name the items in this picture." -: c. "Read these sentences." -: 0=No aphasia, normal -: 1=Mild to moderate aphasia. -: 2=Severe aphasia -: 3=Mute, global aphasia, no usable speech or auditory comprehension. 9. Responses: 0 10. Articulation, Dysarthia: Instruct patient to: -: "Read these words" or "Repeat these words" -: 0=Normal -: 1=Mild to moderate; patient may slur some words but can be understood without difficulty. -: 2=Severe; patients speech so slurred as to be unintelligible in the absence of dysphasia. -: UN=Intubated or other physical barrier, explain in comments. 10. Responses: 1 11. Extinction or inattention: 0=No abnormality -: 1= Visual, tactile, auditory, spatial, or personal inattention or extinction to bilateral simulation in one or the sensory modalities. -: 2=Profound jo-inattention or jo-inattention to more than one modality; does not recognize own hand. 11. Responses: 0 Total Score: 9 Discharge - Discharge Referrals: NILES ENCISO MD [Primary Care Provider] - Follow up as needed
--- NOTE | 2017-11-30 12:31 | RADIOLOGY REPORT (SQ) ---
EXAM DESCRIPTION: CT HEAD WITHOUT COMPLETED DATE/TIME: 11/30/2017 12:06 pm REASON FOR STUDY: slurred speech noon yesterday COMPARISON: 2013 TECHNIQUE: Axial images acquired through the brain without intravenous contrast. Images reviewed wi th bone, brain and subdural windows. Images stored on PACS. All CT scanners at this facility use dose modulation, iterative reconstruction, and/or weight based d osing when appropriate to reduce radiation dose to as low as reasonably achievable (ALARA). [facility]: Dose Right [facility]: CareDose [facility]: Dose Right [facility]: Teradose 4D [facility]: Smart Liiiike RADIATION DOSE: CT Rad equipment meets quality standard of care and radiation dose reduction techniq ues were employed. CTDIvol: 64.6 mGy. DLP: 1163 mGy-cm. mGy. LIMITATIONS: None. FINDINGS: VENTRICLES: Normal size and contour. CEREBRUM: No masses. No hemorrhage. No midline shift. No evidence for acute infarction. Normal gra y/white matter differentiation. No areas of low density in the white matter. CEREBELLUM: Mild low density in the right jo cerebellum, chronic. Old infarct suspected. Otherwis e normal. EXTRAAXIAL SPACES: No fluid collections. No masses. ORBITS AND GLOBE: No intra- or extraconal masses. Normal contour of globe without masses. CALVARIUM: No fracture. PARANASAL SINUSES: No fluid or mucosal thickening. SOFT TISSUES: No mass or hematoma. OTHER: No other significant finding. IMPRESSION: Stable findings. No acute intracranial abnormality. EVIDENCE OF ACUTE STROKE: NO. COMMENT: Quality ID # [id number]: Final reports with documentation of one or more dose reduction techniques (e.g., Automated exposure control, adjustment of the mA and/or kV according to patient size, use of iterative reconstruction technique) TECHNICAL DOCUMENTATION: JOB ID: [id number] [employer]- All Rights Reserved Reading location - IP/workstation name: [email or web address]
[2017-11-30] MEDS ORDERED: NORMAL SALINE 1000 ML 1,000 ML IV ONE (12:49)
[2017-11-30] MEDS ORDERED: ATROPINE SULFATE INJ 1 MG/1 ML VIAL IV ONE ×2 (12:52→13:25)
[2017-11-30 13:01] LABS: INTERNATIONAL RATION (INR) 0.98; PROTHROMBIN TIME 13.7 SEC (11.4-15.4)
[2017-11-30 13:02] LABS: PARTIAL THROMBOPLASTIN TIME 22.2 SEC (23.5-35.8)
[2017-11-30 13:17] LABS: ABSOLUTE BASOPHILS # (AUTO) 0.1 10^3/uL (0.0-0.2); ABSOLUTE LYMPHOCYTES (AUTO) 1.4 10^3/uL (0.5-4.7); ABSOLUTE MONOCYTES (AUTO) 0.8 10^3/uL (0.1-1.4); ABSOLUTE NEUT (AUTO) 4.7 10^3/uL (1.7-8.2); BASOPHILS % (AUTO) 1.2 % (0-2); EOSINOPHILS % (AUTO) 0.2 % (0-6); HEMOGLOBIN 11.8 g/dL (13.5-17.0); MEAN CORPUSCULAR HEMOGLOBIN 23.6 pg (27.0-33.4); MEAN CORPUSCULAR HGB CONC 29.4 g/dL (32.0-36.0); MEAN CORPUSCULAR VOLUME 80 fl (80-97); MONOCYTES % (AUTO) 11.4 % (3-13); PLATELET COUNT 146 10^3/uL (150-450); RED BLOOD COUNT 4.99 10^6/uL (4.35-5.55); RED CELL DISTRIBUTION WIDTH 15.8 % (11.5-14.0); SEGMENTED NEUTROPHILS % (AUTO) 67.2 % (42-78); TOTAL CELLS COUNTED % (AUTO) 100 %; WHITE BLOOD COUNT 6.9 10^3/uL (4.0-10.5)
[2017-11-30 13:32] LABS: ALANINE AMINOTRANSFERASE 31 U/L (21-72); ALBUMIN 4.1 g/dL (3.5-5.0); ALKALINE PHOSPHATASE 106 U/L (38-126); ANION GAP 17 (5-19); ASPARTATE AMINO TRANSFERASE 18 U/L (17-59); BILIRUBIN,DIRECT 0.7 mg/dL (0.0-0.4); BILIRUBIN,TOTAL 0.9 mg/dL (0.2-1.3); BLOOD UREA NITROGEN 96 mg/dL (7-20); CALCIUM 9.6 mg/dL (8.4-10.2); CARBON DIOXIDE 21 mmol/L (22-30); CHLORIDE 74 mmol/L (98-107); CREATINE KINASE 72 U/L (55-170)
--- NOTE | 2017-11-30 13:47 | RADIOLOGY REPORT (SQ) ---
EXAM DESCRIPTION: CHEST SINGLE VIEW COMPLETED DATE/TIME: 11/30/2017 1:25 pm REASON FOR STUDY: ams recent uri COMPARISON: 2017. FINDINGS: Significantly limited by life-support artifact over the majority of the left chest. Left base in particular is not well evaluated. Low lung volumes. Allowing for artifact, the lungs look clear. No pneumothorax evident. No gross d isplaced rib fracture. Left central line in place, as before. IMPRESSION: Limiting artifact. Low lung volumes, otherwise negative. TECHNICAL DOCUMENTATION: JOB ID: [id number] Reading location - IP/workstation name: [email or web address]
[2017-11-30 13:57] LABS: CREATINE KINASE MB 1.44 ng/mL (<4.55); TROPONIN I 0.019 ng/mL
[2017-11-30] MEDS ORDERED: NORMAL SALINE 1000 ML 1,000 ML IV PRN (14:08)
[2017-11-30 14:09] LABS: ACETAMINOPHEN < 10 ug/mL (10-30); SALICYLATE < 1.0 mg/dL (2.0-20.0)
[2017-11-30] MEDS ORDERED: CALCIUM GLUCONATE 1000 MG/10 ML INJ IV ONE (14:09)
[2017-11-30] MEDS ORDERED: METOCLOPRAMIDE HCL INJ/PF 10 MG/2 ML SDV IV ONE (14:09)
[2017-11-30] MEDS ORDERED: INSULIN REG, HUMAN 100 UNIT/ML 3 ML VIAL (PYX) IV ONE (14:10)
[2017-11-30] MEDS ORDERED: SODIUM BICARBONATE 4.2% INJ (2.4 MEQ/5 ML) VIAL INJ ONE (14:11)
[2017-11-30 14:21] LABS: GLUCOSE 1310 mg/dL (75-110); POTASSIUM 6.6 mmol/L (3.6-5.0)
[2017-11-30 14:22] LABS: SODIUM 111.6 mmol/L (137-145)
[2017-11-30] MEDS ORDERED: DIPHENHYDRAMINE HCL 50 MG/ML VIAL ONE ×2 (14:38→15:12)
[2017-11-30 14:59] LABS: URINE AMPHETAMINES SCREEN NEGATIVE; URINE BARBITURATES SCREEN NEGATIVE; URINE BENZODIAZEPINES SCREEN NEGATIVE; URINE COCAINE SCREEN NEGATIVE; URINE MARIJUANA (THC) SCREEN NEGATIVE; URINE METHADONE SCREEN NEGATIVE; URINE PHENCYCLIDINE SCREEN NEGATIVE
[2017-11-30] MEDS ORDERED: DIPHENHYDRAMINE HCL 50 MG/ML VIAL IV ONE ×2 (15:11→16:07)
[2017-11-30] MEDS ORDERED: SODIUM BICARBONATE 8.4% INJ 50 MEQ/50 ML DISP.SYRIN ONE (15:55)
[2017-11-30] MEDS ORDERED: SODIUM BICARBONATE 8.4% INJ 50 MEQ/50 ML DISP.SYRIN IV ONE (16:08)
[2017-11-30] MEDS ORDERED: BENZTROPINE MESYLATE INJ 2 MG/2 ML AMPULE IM ONE (16:20)
[2017-11-30 16:46] VITALS: BP 112/72
[2017-11-30 16:55] LABS: VENOUS BLOOD PCO2 51.2 mmHg (35-63); VENOUS BLOOD PH 7.29 (7.30-7.42)
--- NOTE | 2017-12-01 10:44 | EKG REPORT ---
SEVERITY:- ABNORMAL ECG - SINUS BRADYCARDIA PROBABLE LEFT ATRIAL ABNORMALITY INFERIOR INFARCT, OLD : Confirmed by: Al Marcus 01-Dec-2017 10:44:08
== END 2017-11-30 17:50 | disposition short-term general hospital (02) ==
LOC: ER 11:42
DX: I63.9 Cerebral infarction, unspecified (principal); R27.0 Ataxia, unspecified; R47.1 Dysarthria and anarthria; R73.9 Hyperglycemia, unspecified; I12.0 Hypertensive chronic kidney disease with stage 5 chronic kidney disease or end stage renal disease; N18.6 End stage renal disease; R29.708 NIHSS score 8; G24.09 Other drug induced dystonia; T45.0X5A Adverse effect of antiallergic and antiemetic drugs, initial encounter; Y92.238 Other place in hospital as the place of occurrence of the external cause; R00.1 Bradycardia, unspecified; R40.1 Stupor
CPT/HCPCS: 93005; 99291; 96372; 96361; 96374; 96375; 36415; 82553; 82962; 82550; 80307 ×3; 85025; 85610; 85730; 80053; 84484; 82803; 83880; 71045; 70450; 93010; J0461; J0515; J0610; J1200; J2765; A9270; J3490; J7030; J1815

== ENCOUNTER → 2017-12-18 | Outpatient (CLI) | payer MEDICARE ==
[2017-12-18 12:26] LABS: HEMATOCRIT 32.6 % (37.9-51.0); HEMOGLOBIN 10.1 g/dL (13.5-17.0); MEAN CORPUSCULAR HEMOGLOBIN 22.7 pg (27.0-33.4); MEAN CORPUSCULAR HGB CONC 30.9 g/dL (32.0-36.0); PLATELET COUNT 202 10^3/uL (150-450); RED BLOOD COUNT 4.44 10^6/uL (4.35-5.55); RED CELL DISTRIBUTION WIDTH 15.5 % (11.5-14.0); WHITE BLOOD COUNT 6.9 10^3/uL (4.0-10.5)
[2017-12-18 12:32] LABS: APPEARANCE,URINE CLEAR; BILIRUBIN,URINE NEGATIVE (NEGATIVE); COLOR,URINE STRAW; GLUCOSE, URINE NEGATIVE (NEGATIVE); KETONES,URINE NEGATIVE (NEGATIVE); LEUKOCYTE ESTERASE,URINE NEGATIVE (NEGATIVE); NITRITE,URINE NEGATIVE (NEGATIVE); PROTEIN,URINE 30 mg/dL (NEGATIVE); URINE SPECIFIC GRAVITY 1.005; UROBILINOGEN,URINE NEGATIVE mg/dL (<2.0)
[2017-12-18 12:36] LABS: MEAN CORPUSCULAR VOLUME 74 fl (80-97)
[2017-12-18 12:39] LABS: ANION GAP 9 (5-19); BLOOD UREA NITROGEN 54 mg/dL (7-20); CALCIUM 9.8 mg/dL (8.4-10.2); CARBON DIOXIDE 30 mmol/L (22-30); CHLORIDE 101 mmol/L (98-107); GLUCOSE 44 mg/dL (75-110); POTASSIUM 3.9 mmol/L (3.6-5.0); SODIUM 139.5 mmol/L (137-145)
== END ==
LOC: OD 11:03
PROVIDERS: ATTEND Internal Medicine Nephrology
DX: I12.9 Hypertensive chronic kidney disease with stage 1 through stage 4 chronic kidney disease, or unspecified chronic kidney disease (principal); N18.3 Chronic kidney disease, stage 3 (moderate); D64.9 Anemia, unspecified
CPT/HCPCS: 36415; 80048; 81001; 85027

== ENCOUNTER → 2018-03-21 | Outpatient (CLI) | payer MEDICARE ==
[2018-03-21 10:02] LABS: HEMATOCRIT 32.1 % (37.9-51.0); HEMOGLOBIN 10.2 g/dL (13.5-17.0); MEAN CORPUSCULAR HEMOGLOBIN 22.8 pg (27.0-33.4); MEAN CORPUSCULAR HGB CONC 31.6 g/dL (32.0-36.0); MEAN CORPUSCULAR VOLUME 72 fl (80-97); PLATELET COUNT 165 10^3/uL (150-450); RED BLOOD COUNT 4.46 10^6/uL (4.35-5.55); RED CELL DISTRIBUTION WIDTH 18.2 % (11.5-14.0); WHITE BLOOD COUNT 3.7 10^3/uL (4.0-10.5)
[2018-03-21 10:07] LABS: APPEARANCE,URINE CLEAR; BILIRUBIN,URINE NEGATIVE (NEGATIVE); COLOR,URINE STRAW; GLUCOSE, URINE NEGATIVE (NEGATIVE); KETONES,URINE NEGATIVE (NEGATIVE); LEUKOCYTE ESTERASE,URINE NEGATIVE (NEGATIVE); NITRITE,URINE NEGATIVE (NEGATIVE); PROTEIN,URINE 30 mg/dL (NEGATIVE); URINE SPECIFIC GRAVITY 1.012; UROBILINOGEN,URINE NEGATIVE mg/dL (<2.0)
[2018-03-21 10:30] LABS: ANION GAP 15 (5-19); BLOOD UREA NITROGEN 78 mg/dL (7-20); CALCIUM 9.6 mg/dL (8.4-10.2); CARBON DIOXIDE 25 mmol/L (22-30); CHLORIDE 102 mmol/L (98-107); GLUCOSE 96 mg/dL (75-110); PHOSPHORUS 4.4 mg/dL (2.5-4.5); POTASSIUM 4.1 mmol/L (3.6-5.0)
[2018-03-21 10:31] LABS: UR PRO/CREAT RATIO RESULT 0.5 mg/mg (0.0-0.2); URINE CREATININE 71.8 mg/dL (22-328); URINE PROTEIN 37.8 mg/dL (<12)
== END ==
LOC: OD 09:16
PROVIDERS: ATTEND Internal Medicine Nephrology
DX: I12.9 Hypertensive chronic kidney disease with stage 1 through stage 4 chronic kidney disease, or unspecified chronic kidney disease (principal); N18.4 Chronic kidney disease, stage 4 (severe); E11.9 Type 2 diabetes mellitus without complications; R80.9 Proteinuria, unspecified
CPT/HCPCS: 36415; 80048; 81001; 82570; 83970; 84100; 84156; 85027

== ENCOUNTER → 2018-07-28 | Outpatient (CLI) | payer MEDICARE ==
[2018-07-28 08:23] LABS: HEMATOCRIT 34.1 % (37.9-51.0); MEAN CORPUSCULAR HEMOGLOBIN 23.1 pg (27.0-33.4); MEAN CORPUSCULAR HGB CONC 32.3 g/dL (32.0-36.0); MEAN CORPUSCULAR VOLUME 72 fl (80-97); PLATELET COUNT 203 10^3/uL (150-450); RED BLOOD COUNT 4.75 10^6/uL (4.35-5.55); RED CELL DISTRIBUTION WIDTH 16.8 % (11.5-14.0); WHITE BLOOD COUNT 5.5 10^3/uL (4.0-10.5)
[2018-07-28 08:29] LABS: APPEARANCE,URINE CLEAR; BILIRUBIN,URINE NEGATIVE (NEGATIVE); COLOR,URINE YELLOW; GLUCOSE, URINE NEGATIVE (NEGATIVE); KETONES,URINE NEGATIVE (NEGATIVE); PROTEIN,URINE 30 mg/dL (NEGATIVE); URINE SPECIFIC GRAVITY 1.013
[2018-07-28 08:30] LABS: LEUKOCYTE ESTERASE,URINE NEGATIVE (NEGATIVE); NITRITE,URINE NEGATIVE (NEGATIVE); UROBILINOGEN,URINE NEGATIVE mg/dL (<2.0)
[2018-07-28 08:43] LABS: ANION GAP 12 (5-19); BLOOD UREA NITROGEN 66 mg/dL (7-20); CALCIUM 9.5 mg/dL (8.4-10.2); CARBON DIOXIDE 26 mmol/L (22-30); CHLORIDE 105 mmol/L (98-107); GLUCOSE 110 mg/dL (75-110); POTASSIUM 4.3 mmol/L (3.6-5.0); SODIUM 142.8 mmol/L (137-145)
[2018-07-28 08:46] LABS: UR PRO/CREAT RATIO RESULT 0.6 mg/mg (0.0-0.2); URINE CREATININE 96.1 mg/dL (22-328); URINE PROTEIN 55.5 mg/dL (<12)
== END ==
LOC: OD 07:53
PROVIDERS: ATTEND Internal Medicine Nephrology
DX: I12.9 Hypertensive chronic kidney disease with stage 1 through stage 4 chronic kidney disease, or unspecified chronic kidney disease (principal); N18.4 Chronic kidney disease, stage 4 (severe); E83.42 Hypomagnesemia; D64.9 Anemia, unspecified
CPT/HCPCS: 36415; 80048; 81001; 82570; 83735; 83970; 84100; 84156; 85027

== ENCOUNTER → 2018-11-28 | Outpatient (CLI) | payer MEDICARE ==
[2018-11-28 09:37] LABS: HEMOGLOBIN 11.2 g/dL (13.5-17.0); MEAN CORPUSCULAR HEMOGLOBIN 23.2 pg (27.0-33.4); MEAN CORPUSCULAR VOLUME 73 fl (80-97); PLATELET COUNT 133 10^3/uL (150-450); RED BLOOD COUNT 4.83 10^6/uL (4.35-5.55); RED CELL DISTRIBUTION WIDTH 16.4 % (11.5-14.0); WHITE BLOOD COUNT 3.6 10^3/uL (4.0-10.5)
[2018-11-28 09:45] LABS: APPEARANCE,URINE CLEAR; BILIRUBIN,URINE NEGATIVE (NEGATIVE); COLOR,URINE STRAW; GLUCOSE, URINE NEGATIVE (NEGATIVE); KETONES,URINE NEGATIVE (NEGATIVE); LEUKOCYTE ESTERASE,URINE NEGATIVE (NEGATIVE); NITRITE,URINE NEGATIVE (NEGATIVE); PROTEIN,URINE 30 mg/dL (NEGATIVE); URINE SPECIFIC GRAVITY 1.013; UROBILINOGEN,URINE NEGATIVE mg/dL (<2.0)
[2018-11-28 10:04] LABS: UR PRO/CREAT RATIO RESULT 0.7 mg/mg (0.0-0.2); URINE CREATININE 90.1 mg/dL (22-328); URINE PROTEIN 64.7 mg/dL (<12)
[2018-11-28 10:06] LABS: ANION GAP 9 (5-19); BLOOD UREA NITROGEN 70 mg/dL (7-20); CALCIUM 9.6 mg/dL (8.4-10.2); CARBON DIOXIDE 25 mmol/L (22-30); CHLORIDE 104 mmol/L (98-107); GLUCOSE 106 mg/dL (75-110); PHOSPHORUS 4.4 mg/dL (2.5-4.5); POTASSIUM 4.4 mmol/L (3.6-5.0); SODIUM 138.1 mmol/L (137-145)
== END ==
LOC: OD 09:00
PROVIDERS: ATTEND Internal Medicine Nephrology
DX: I12.9 Hypertensive chronic kidney disease with stage 1 through stage 4 chronic kidney disease, or unspecified chronic kidney disease (principal); N18.4 Chronic kidney disease, stage 4 (severe); R80.9 Proteinuria, unspecified; D64.9 Anemia, unspecified
CPT/HCPCS: 36415; 80048; 81001; 82570; 83970; 84100; 84156; 85027

== ENCOUNTER → 2019-03-24 | Outpatient (CLI) | payer MEDICARE ==
[2019-03-24 08:09] LABS: HEMATOCRIT 33.7 % (37.9-51.0); HEMOGLOBIN 10.8 g/dL (13.5-17.0); MEAN CORPUSCULAR HGB CONC 31.9 g/dL (32.0-36.0); MEAN CORPUSCULAR VOLUME 72 fl (80-97); PLATELET COUNT 191 10^3/uL (150-450); RED BLOOD COUNT 4.67 10^6/uL (4.35-5.55); RED CELL DISTRIBUTION WIDTH 16.3 % (11.5-14.0); WHITE BLOOD COUNT 4.1 10^3/uL (4.0-10.5)
[2019-03-24 08:28] LABS: ALANINE AMINOTRANSFERASE 21 U/L (21-72); ALBUMIN 4.1 g/dL (3.5-5.0); ALKALINE PHOSPHATASE 76 U/L (38-126); ANION GAP 11 (5-19); ASPARTATE AMINO TRANSFERASE 19 U/L (17-59); BILIRUBIN,DIRECT 0.3 mg/dL (0.0-0.4); BILIRUBIN,TOTAL 0.4 mg/dL (0.2-1.3); BLOOD UREA NITROGEN 70 mg/dL (7-20); CALCIUM 9.6 mg/dL (8.4-10.2); CARBON DIOXIDE 26 mmol/L (22-30); CHLORIDE 104 mmol/L (98-107); GLUCOSE 117 mg/dL (75-110); PHOSPHORUS 4.2 mg/dL (2.5-4.5); POTASSIUM 4.3 mmol/L (3.6-5.0); SODIUM 140.5 mmol/L (137-145); TOTAL PROTEIN 7.1 g/dL (6.3-8.2)
[2019-03-24 08:31] LABS: APPEARANCE,URINE CLEAR; BILIRUBIN,URINE NEGATIVE (NEGATIVE); COLOR,URINE STRAW; GLUCOSE, URINE NEGATIVE (NEGATIVE); KETONES,URINE NEGATIVE (NEGATIVE); LEUKOCYTE ESTERASE,URINE NEGATIVE (NEGATIVE); NITRITE,URINE NEGATIVE (NEGATIVE); PROTEIN,URINE 100 mg/dL (NEGATIVE); URINE SPECIFIC GRAVITY 1.013; UROBILINOGEN,URINE NEGATIVE mg/dL (<2.0)
[2019-03-24 09:15] LABS: UR PRO/CREAT RATIO RESULT 0.6 mg/mg (0.0-0.2); URINE CREATININE 106.7 mg/dL (22-328)
== END ==
LOC: OD 07:37
PROVIDERS: ATTEND Internal Medicine Nephrology
DX: E11.22 Type 2 diabetes mellitus with diabetic chronic kidney disease (principal); I12.9 Hypertensive chronic kidney disease with stage 1 through stage 4 chronic kidney disease, or unspecified chronic kidney disease; N18.4 Chronic kidney disease, stage 4 (severe); R80.9 Proteinuria, unspecified
CPT/HCPCS: 36415; 80053; 81001; 82570; 83735; 83970; 84100; 84156; 85027

== ENCOUNTER → 2019-10-03 | Outpatient (CLI) | payer MEDICARE ==
[2019-10-03 10:25] LABS: HEMOGLOBIN 11.3 g/dL (13.5-17.0); MEAN CORPUSCULAR HEMOGLOBIN 23.5 pg (27.0-33.4); MEAN CORPUSCULAR HGB CONC 32.2 g/dL (32.0-36.0); MEAN CORPUSCULAR VOLUME 73 fl (80-97); PLATELET COUNT 141 10^3/uL (150-450); RED CELL DISTRIBUTION WIDTH 16.7 % (11.5-14.0); WHITE BLOOD COUNT 3.7 10^3/uL (4.0-10.5)
[2019-10-03 10:47] LABS: ABSOLUTE LYMPHOCYTES# (MANUAL) 1.8 10^3/uL (0.5-4.7); ABSOLUTE MONOCYTES # (MANUAL) 0.5 10^3/uL (0.1-1.4); BASOPHILS % (MANUAL) 1 % (0-2); EOSINOPHILS % (MANUAL) 3 % (0-6); LYMPHOCYTES % (MANUAL) 48 % (13-45); MONOCYTES % (MANUAL) 14 % (3-13); SEGMENTED NEUTROPHILS % (MAN) 34 % (42-78); TOTAL CELLS COUNTED 100
[2019-10-03 10:49] LABS: ANISOCYTOSIS 1+; HYPOCHROMASIA 1+; OVALOCYTES 2+; PLATELET COMMENT DECREASED; POIKILOCYTOSIS 2+
== END ==
LOC: OD 08:43
PROVIDERS: ATTEND Internal Medicine Hematology & Oncology
DX: C90.00 Multiple myeloma not having achieved remission (principal)
CPT/HCPCS: 36415; 85025

== ENCOUNTER → 2019-11-02 | Outpatient (CLI) | payer MEDICARE ==
[2019-11-02 08:08] LABS: ABSOLUTE EOSINOPHILS # (AUTO) 0.1 10^3/uL (0.0-0.6); ABSOLUTE LYMPHOCYTES (AUTO) 1.8 10^3/uL (0.5-4.7); ABSOLUTE MONOCYTES (AUTO) 0.8 10^3/uL (0.1-1.4); ABSOLUTE NEUT (AUTO) 1.1 10^3/uL (1.7-8.2); BASOPHILS % (AUTO) 1.1 % (0-2); EOSINOPHILS % (AUTO) 2.9 % (0-6); HEMOGLOBIN 10.9 g/dL (13.5-17.0); LYMPHOCYTES % (AUTO) 47.1 % (13-45); MEAN CORPUSCULAR HEMOGLOBIN 23.4 pg (27.0-33.4); MEAN CORPUSCULAR HGB CONC 32.1 g/dL (32.0-36.0); MEAN CORPUSCULAR VOLUME 73 fl (80-97); MONOCYTES % (AUTO) 19.6 % (3-13); PLATELET COUNT 172 10^3/uL (150-450); RED BLOOD COUNT 4.67 10^6/uL (4.35-5.55); RED CELL DISTRIBUTION WIDTH 16.4 % (11.5-14.0); SEGMENTED NEUTROPHILS % (AUTO) 29.3 % (42-78); TOTAL CELLS COUNTED % (AUTO) 100 %; WHITE BLOOD COUNT 3.8 10^3/uL (4.0-10.5)
== END ==
LOC: OD 07:09
PROVIDERS: ATTEND Internal Medicine Hematology & Oncology
DX: C90.00 Multiple myeloma not having achieved remission (principal)
CPT/HCPCS: 36415; 85025

== ENCOUNTER → 2020-03-21 | Outpatient (CLI) | payer MEDICARE ==
[2020-03-21 11:17] LABS: HEMATOCRIT 34.9 % (37.9-51.0); HEMOGLOBIN 11.2 g/dL (13.5-17.0); MEAN CORPUSCULAR HEMOGLOBIN 23.9 pg (27.0-33.4); MEAN CORPUSCULAR VOLUME 75 fl (80-97); PLATELET COUNT 125 10^3/uL (150-450); RED BLOOD COUNT 4.68 10^6/uL (4.35-5.55); WHITE BLOOD COUNT 4.1 10^3/uL (4.0-10.5)
[2020-03-21 12:06] LABS: ABSOLUTE LYMPHOCYTES# (MANUAL) 1.9 10^3/uL (0.5-4.7); ABSOLUTE MONOCYTES # (MANUAL) 0.7 10^3/uL (0.1-1.4); BASOPHILS % (MANUAL) 2 % (0-2); EOSINOPHILS % (MANUAL) 2 % (0-6); LYMPHOCYTES % (MANUAL) 45 % (13-45); MONOCYTES % (MANUAL) 18 % (3-13); SEGMENTED NEUTROPHILS % (MAN) 31 % (42-78); TOTAL CELLS COUNTED 100
[2020-03-21 12:08] LABS: ANISOCYTOSIS 1+; OVALOCYTES 1+; PLATELET COMMENT DECREASED; POIKILOCYTOSIS SLIGHT; POLYCHROMASIA SLIGHT; TEAR DROP CELLS SLIGHT
== END ==
LOC: OD 10:44
PROVIDERS: ATTEND Internal Medicine Hematology & Oncology
DX: C90.00 Multiple myeloma not having achieved remission (principal)
CPT/HCPCS: 36415; 85025

== ENCOUNTER → 2020-04-19 | Outpatient (CLI) | payer MEDICARE ==
[2020-04-19 08:28] LABS: HEMATOCRIT 35.2 % (37.9-51.0); HEMOGLOBIN 11.1 g/dL (13.5-17.0); MEAN CORPUSCULAR HEMOGLOBIN 23.9 pg (27.0-33.4); MEAN CORPUSCULAR HGB CONC 31.5 g/dL (32.0-36.0); MEAN CORPUSCULAR VOLUME 76 fl (80-97); PLATELET COUNT 134 10^3/uL (150-450); RED BLOOD COUNT 4.65 10^6/uL (4.35-5.55); WHITE BLOOD COUNT 3.3 10^3/uL (4.0-10.5)
[2020-04-19 09:06] LABS: ABSOLUTE LYMPHOCYTES# (MANUAL) 1.7 10^3/uL (0.5-4.7); ABSOLUTE MONOCYTES # (MANUAL) 0.4 10^3/uL (0.1-1.4); BASOPHILS % (MANUAL) 0 % (0-2); EOSINOPHILS % (MANUAL) 2 % (0-6); LYMPHOCYTES % (MANUAL) 49 % (13-45); MONOCYTES % (MANUAL) 13 % (3-13); SEGMENTED NEUTROPHILS % (MAN) 34 % (42-78); TOTAL CELLS COUNTED 100
[2020-04-19 09:07] LABS: OVALOCYTES SLIGHT; PLATELET COMMENT DECREASED; POIKILOCYTOSIS SLIGHT
== END ==
LOC: OD 07:16
PROVIDERS: ATTEND Internal Medicine Hematology & Oncology
DX: C90.00 Multiple myeloma not having achieved remission (principal)
CPT/HCPCS: 36415; 85025

== ENCOUNTER → 2020-06-14 | Outpatient (CLI) | payer MEDICARE ==
[2020-06-14 10:43] LABS: HEMATOCRIT 32.7 % (37.9-51.0); HEMOGLOBIN 10.5 g/dL (13.5-17.0); MEAN CORPUSCULAR HGB CONC 32.2 g/dL (32.0-36.0); MEAN CORPUSCULAR VOLUME 75 fl (80-97); PLATELET COUNT 120 10^3/uL (150-450); RED BLOOD COUNT 4.39 10^6/uL (4.35-5.55); WHITE BLOOD COUNT 2.9 10^3/uL (4.0-10.5)
[2020-06-14 11:22] LABS: ABSOLUTE LYMPHOCYTES# (MANUAL) 1.7 10^3/uL (0.5-4.7); ABSOLUTE MONOCYTES # (MANUAL) 0.4 10^3/uL (0.1-1.4); BASOPHILS % (MANUAL) 2 % (0-2); EOSINOPHILS % (MANUAL) 6 % (0-6); LYMPHOCYTES % (MANUAL) 52 % (13-45); MONOCYTES % (MANUAL) 13 % (3-13); SEGMENTED NEUTROPHILS % (MAN) 22 % (42-78); TOTAL CELLS COUNTED 100
[2020-06-14 11:26] LABS: ANISOCYTOSIS 1+; HYPOCHROMASIA 1+; OVALOCYTES 1+; PLATELET COMMENT DECREASED; POIKILOCYTOSIS 1+
== END ==
LOC: OD 09:45
PROVIDERS: ATTEND Internal Medicine Hematology & Oncology
DX: C90.00 Multiple myeloma not having achieved remission (principal)
CPT/HCPCS: 36415; 85025

== ENCOUNTER → 2020-06-21 | Outpatient (CLI) | payer MEDICARE ==
[2020-06-21 12:29] LABS: ABSOLUTE MONOCYTES (AUTO) 0.6 10^3/uL (0.1-1.4); ABSOLUTE NEUT (AUTO) 1.3 10^3/uL (1.7-8.2); HEMOGLOBIN 11.5 g/dL (13.5-17.0); TOTAL CELLS COUNTED % (AUTO) 100 %
[2020-06-21 12:35] LABS: ABSOLUTE LYMPHOCYTES (AUTO) 1.2 10^3/uL (0.5-4.7); BASOPHILS % (AUTO) 1.1 % (0-2); EOSINOPHILS % (AUTO) 0.5 % (0-6); HEMATOCRIT 35.5 % (37.9-51.0); LYMPHOCYTES % (AUTO) 38.9 % (13-45); MEAN CORPUSCULAR HEMOGLOBIN 24.2 pg (27.0-33.4); MEAN CORPUSCULAR HGB CONC 32.3 g/dL (32.0-36.0); MEAN CORPUSCULAR VOLUME 75 fl (80-97); MONOCYTES % (AUTO) 18.5 % (3-13); PLATELET COUNT 181 10^3/uL (150-450); RED BLOOD COUNT 4.75 10^6/uL (4.35-5.55); RED CELL DISTRIBUTION WIDTH 16.1 % (11.5-14.0); WHITE BLOOD COUNT 3.1 10^3/uL (4.0-10.5)
== END ==
LOC: OD 11:55
PROVIDERS: ATTEND Internal Medicine Hematology & Oncology
DX: C90.00 Multiple myeloma not having achieved remission (principal)
CPT/HCPCS: 36415; 85025

== ENCOUNTER → 2020-07-18 | Outpatient (CLI) | payer MEDICARE ==
[2020-07-18 10:27] LABS: HEMATOCRIT 33.7 % (37.9-51.0); HEMOGLOBIN 10.8 g/dL (13.5-17.0); MEAN CORPUSCULAR HEMOGLOBIN 23.7 pg (27.0-33.4); MEAN CORPUSCULAR HGB CONC 32.1 g/dL (32.0-36.0); MEAN CORPUSCULAR VOLUME 74 fl (80-97); PLATELET COUNT 138 10^3/uL (150-450); RED BLOOD COUNT 4.57 10^6/uL (4.35-5.55); RED CELL DISTRIBUTION WIDTH 15.8 % (11.5-14.0); WHITE BLOOD COUNT 3.1 10^3/uL (4.0-10.5)
[2020-07-18 11:40] LABS: ABSOLUTE LYMPHOCYTES# (MANUAL) 1.7 10^3/uL (0.5-4.7); ABSOLUTE MONOCYTES # (MANUAL) 0.5 10^3/uL (0.1-1.4); ANISOCYTOSIS SLIGHT; BAND NEUTROPHILS % (MANUAL) 1 % (3-5); BASOPHILS % (MANUAL) 1 % (0-2); EOSINOPHILS % (MANUAL) 1 % (0-6); LYMPHOCYTES % (MANUAL) 52 % (13-45); METAMYELOCYTES % (MANUAL) 2 % (0-1); MONOCYTES % (MANUAL) 17 % (3-13); SEGMENTED NEUTROPHILS % (MAN) 22 % (42-78); TOTAL CELLS COUNTED 100
[2020-07-18 11:41] LABS: HYPOCHROMASIA 1+; OVALOCYTES 1+; POIKILOCYTOSIS 1+; TARGET CELLS SLIGHT
[2020-07-18 12:01] LABS: PLATELET COMMENT DECREASED
== END ==
LOC: OD 09:45
PROVIDERS: ATTEND Internal Medicine Hematology & Oncology
DX: C90.00 Multiple myeloma not having achieved remission (principal)
CPT/HCPCS: 36415; 85025

== ENCOUNTER → 2020-08-13 | Outpatient (CLI) | payer MEDICARE ==
[2020-08-13 10:14] LABS: HEMATOCRIT 33.8 % (37.9-51.0); HEMOGLOBIN 10.8 g/dL (13.5-17.0); MEAN CORPUSCULAR HEMOGLOBIN 23.8 pg (27.0-33.4); MEAN CORPUSCULAR VOLUME 74 fl (80-97); PLATELET COUNT 139 10^3/uL (150-450); RED BLOOD COUNT 4.54 10^6/uL (4.35-5.55); RED CELL DISTRIBUTION WIDTH 15.7 % (11.5-14.0); WHITE BLOOD COUNT 3.5 10^3/uL (4.0-10.5)
[2020-08-13 10:44] LABS: ABSOLUTE LYMPHOCYTES# (MANUAL) 1.4 10^3/uL (0.5-4.7); ABSOLUTE MONOCYTES # (MANUAL) 0.9 10^3/uL (0.1-1.4); BASOPHILS % (MANUAL) 1 % (0-2); EOSINOPHILS % (MANUAL) 5 % (0-6); LYMPHOCYTES % (MANUAL) 41 % (13-45); MONOCYTES % (MANUAL) 25 % (3-13); SEGMENTED NEUTROPHILS % (MAN) 28 % (42-78); TOTAL CELLS COUNTED 100
[2020-08-13 10:45] LABS: ANISOCYTOSIS SLIGHT; HYPOCHROMASIA 1+
[2020-08-13 10:46] LABS: OVALOCYTES SLIGHT; PLATELET COMMENT DECREASED
== END ==
LOC: OD 09:31
PROVIDERS: ATTEND Internal Medicine Hematology & Oncology
DX: C90.00 Multiple myeloma not having achieved remission (principal)
CPT/HCPCS: 36415; 85025

== ENCOUNTER → 2020-09-12 | Outpatient (CLI) | payer MEDICARE ==
[2020-09-12 08:55] LABS: HEMATOCRIT 35.5 % (37.9-51.0); MEAN CORPUSCULAR HEMOGLOBIN 23.1 pg (27.0-33.4); MEAN CORPUSCULAR HGB CONC 31.1 g/dL (32.0-36.0); MEAN CORPUSCULAR VOLUME 74 fl (80-97); PLATELET COUNT 140 10^3/uL (150-450); RED BLOOD COUNT 4.78 10^6/uL (4.35-5.55); WHITE BLOOD COUNT 3.3 10^3/uL (4.0-10.5)
== END ==
LOC: OD 07:09
PROVIDERS: ATTEND Internal Medicine Hematology & Oncology
DX: C90.00 Multiple myeloma not having achieved remission (principal)
CPT/HCPCS: 36415; 85027